=== PATIENT | female | born 1955 | race African-American/Black ===

== ENCOUNTER 2016-06-25 16:00 | Emergency (ER) | payer BC ==
[2016-06-25 16:19] VITALS: BP 108/76; PULSE 79; TEMP 97.8; BMI 28.2
--- NOTE | 2016-06-25 17:24 | PDOC ---
History of Present Illness - General History Source: Patient, Old Records Exam Limitations: No Limitations <All Fuentes - Last Filed: 06/25/16 19:37> <Shireen Hicks - Last Filed: 06/27/16 02:18> - General Chief Complaint: Chest Pain Stated Complaint: CHEST PAIN Time Seen by Provider: 06/25/16 17:19 - History of Present Illness Initial Comments: The patient is a 61 year old female with a significant past medical history of hypertension, hyperlipidemia, and CAD, who presents to the emergency department today for further evaluation of intermittent chest pain since yesterday. Today the patient was at work and states that her chest pain was the worst it has been since initial onset of symptoms. She was sent to the emergency department by her boss to seek treatment. The patient notes that her chest pain began mid- sternally and radiates towards her lower back and epigastric region. She denies chest pain now but reports epigastric pain. She reports associated lightheadedness and diaphoresis. The patient denies fever, cough, and shortness of breath. The patient denies nausea, vomiting, and diarrhea. PCP: Dr. Christine Boyce [phone] PAST MEDICAL HISTORY: HTN, HLD, CAD. PAST SURGICAL HISTORY: Cholecystectomy, appendectomy, 2 cardiac stents, gastric bypass. FAMILY HISTORY: No pertinent history reported SOCIAL HISTORY: Smoker MEDICATIONS: Reviewed ALLERGIES: As per nursing notes (All Fuentes) Past History <All Fuentes - Last Filed: 06/25/16 19:37> - Past Medical History Asthma: Yes Cardiac Disorders: Yes (cardiac stents) HTN: Yes Hypercholesterolemia: Yes Suicide Attempt (Hx): No - Surgical History Abdominal Surgery: Yes (Gastric bypass) Cardiac Surgery: Yes (Cardica Stents) - Family Disease History Family Disease History: Heart Disease: Mother - Immunization History Immunization Up to Date: No - Psycho/Social/Smoking Cessation Hx Anxiety: No Suicidal Ideation: No Smoking Status: Yes Smoking History: Current every day smoker Number of Cigarettes Smoked Daily: 4 Information on smoking cessation initiated: Yes 'Breaking Loose' booklet given: 06/25/16 Hx Alcohol Use: No Drug/Substance Use Hx: No Substance Use Type: None Hx Substance Use Treatment: No <Shireen Hicks - Last Filed: 06/27/16 02:18> - Past Medical History Allergies/Adverse Reactions: Allergies Allergy/AdvReac Type Severity Reaction Status Date / Time No Known Allergies Allergy Verified 06/25/16 16:19 Home Medications: Ambulatory Orders Amlodipine Besylate/Benazepril [Lotrel 5-40 mg Capsule] 1 each PO DAILY Hydrochlorothiazide 25 mg PO DAILY 06/11/15 Nebivolol HCl [Bystolic] 5 mg PO DAILY 06/11/15 Aspirin [Cecilia Chewable] 81 mg PO DAILY 06/25/16 Review of Systems - Review of Systems Able to Perform ROS?: Yes <All Fuentes - Last Filed: 06/25/16 19:37> <Shireen Hicks - Last Filed: 06/27/16 02:18> - Review of Systems Comments:: CONSTITUTIONAL: Present: Diaphoresis Absent: fever, chills, generalized weakness, malaise, loss of appetite HEENT: Absent: rhinorrhea, nasal congestion, throat pain, throat swelling, difficulty swallowing, mouth swelling, ear pain, eye pain, visual Changes CARDIOVASCULAR: Absent: chest pain, syncope, palpitations, irregular heart rate, lightheadedness , peripheral edema RESPIRATORY: Absent: cough, shortness of breath, dyspnea with exertion, orthopnea, wheezing, stridor, hemoptysis GASTROINTESTINAL: Present: Gastrointestinal pain Absent: Nausea, vomiting, diarrhea, constipation, melena, hematochezia GENITOURINARY: Absent: dysuria, frequency, urgency, hesitancy, hematuria, flank pain, genital pain MUSCULOSKELETAL: Present: Back pain Absent: arthralgia, joint swelling SKIN: Absent: rash, itching, pallor HEMATOLOGIC/IMMUNOLOGIC: Absent: easy bleeding, easy bruising, lymphadenopathy, frequent infections ENDOCRINE: Absent: unexplained weight gain, unexplained weight loss, heat intolerance, cold intolerance NEUROLOGIC: Present: Lightheadedness Absent: headache, focal weakness or paresthesias, seizure, mental status changes , bladder or bowel incontinence PSYCHIATRIC: Absent: anxiety, depression, suicidal or homicidal ideation, hallucinations. ( All Fuentes) *Physical Exam <All Fuentes - Last Filed: 06/25/16 19:37> <Shireen Hicks - Last Filed: 06/27/16 02:18> - Vital Signs Last Vital Signs Temp Pulse Resp BP Pulse Ox 97.8 F 79 17 108/76 98 06/25/16 16:17 06/25/16 17:39 06/25/16 16:17 06/25/16 16:17 06/25/16 17:39 - Physical Exam Comments: GENERAL: Well developed, well nourished. Awake and alert. No acute distress. HEENT: Normocephalic, atraumatic. PERRLA, EOMI. No conjunctival pallor. Sclera are non- icteric. Moist mucous membranes. Oropharynx is clear. NECK: Supple. Full ROM. No JVD. Carotid pulses 2+ and symmetric, without bruits. No thyromegaly. No lymphadenopathy. CARDIOVASCULAR: Regular rate and rhythm. No murmurs, rubs, or gallops. Distal pulses are 2+ and symmetric. PULMONARY: No evidence of respiratory distress. Lungs clear to auscultation bilaterally. No wheezing, rales or rhonchi. ABDOMINAL: Soft. Non-tender. Non-distended. No rebound or guarding. No organomegaly. Normoactive bowel sounds. MUSCULOSKELETAL Normal range of motion at all joints. No bony deformities or tenderness. No CVA tenderness. EXTREMITIES: No cyanosis. No clubbing. No edema. No calf tenderness. SKIN: Warm and dry. Normal capillary refill. No rashes. No jaundice. NEUROLOGICAL: Alert, awake, appropriate. Cranial nerves 2-12 intact. No deficits to light touch and temperature in face, upper extremities and lower extremities. No motor deficits in the in face, upper extremities and lower extremities. Normoreflexic in the upper and lower extremities. Normal speech. Toes are down-going bilaterally. PSYCHIATRIC: Cooperative. Good eye contact. Appropriate mood and affect. (All Fuentes) Heart Score/ECG Review <All Fuentes - Last Filed: 06/25/16 19:37> <Shireen Hicks - Last Filed: 06/27/16 02:18> - ECG Impressions Comment:: Normal sinus rhythm. Possible left atrial enlargement. Left axis deviation. Septal infarct age undetermined. Abnormal ECG. (All Fuentes) ED Treatment Course - LABORATORY CBC & Chemistry Diagram: 06/25/16 16:33 06/25/16 16:33 <All Fuentes - Last Filed: 06/25/16 19:37> - LABORATORY CBC & Chemistry Diagram: 06/25/16 16:33 06/25/16 16:33 <Shireen Hicks - Last Filed: 06/27/16 02:18> - ADDITIONAL ORDERS Additional order review: 06/25/16 16:33 RBC 4.57 MCV 85.5 MCHC 32.2 RDW 18.4 H MPV 6.5 L Neutrophils % 52.7 D Lymphocytes % 31.9 D Monocytes % 10.4 H Eosinophils % 4.4 Basophils % 0.6 - RADIOLOGY Radiology Studies Ordered: Category Date Time Status CHEST X-RAY PORTABLE* [RAD] Stat Radiology 06/25/16 17:25 Completed Radiograph Interpretation: 06/25/16 19:20 EXAM#: TYPE/EXAM: RESULT: [id number] RAD/CHEST X-RAY PORTABLE* HISTORY PROVIDED: Chest pain. A single frontal portable projection of the chest at 5:48 PM is submitted. The heart size is within normal limits. The lung nunez are free of pulmonary infiltrates or pleural effusions. There is tortuosity and calcification of the thoracic aorta and degenerative changes of the thoracic spine. IMPRESSION: No acute disease. Reported By: Tyshawn Owen MD 06/25/16 2075 (All Fuentes) - Medications Given in the ED: ED Medications Discontinued Medications Generic Name Dose Route Start Last Admin Trade Name Edwardq PRN Reason Stop Dose Admin Al Hydroxide/Mg Hydroxide 30 ml 06/25/16 20:15 06/25/16 20:29 Mylanta Oral Suspension - PO 06/25/16 20:16 30 ml ONCE ONE Administration Aspirin 162 mg 06/25/16 17:25 06/25/16 17:53 Asa - PO 06/25/16 17:26 162 mg ONCE ONE Administration Ranitidine HCl 150 mg 06/25/16 20:15 06/25/16 20:29 Zantac - PO 06/25/16 20:16 150 mg ONCE ONE Administration Medical Decision Making <All Fuentes - Last Filed: 06/25/16 19:37> <Shireen Hicks - Last Filed: 06/27/16 02:18> - Medical Decision Making 06/27/16 02:16 61-year-old female presented because she had had atypical chest pain in The past 24 hours. 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 (Shireen Hicks) *DC/Admit/Observation/Transfer <All Fuentes - Last Filed: 06/25/16 19:37> <Shireen Hicks - Last Filed: 06/27/16 02:18> Diagnosis at time of Disposition: Atypical chest pain - Discharge Dispostion Disposition: HOME Condition at time of disposition: Stable - Referrals Referrals: Sandy Boyce MD [Primary Care Provider] - - Patient Instructions Printed Discharge Instructions: DI for Atypical Chest Pain Additional Instructions: please followup with your physician this week - Attestations Scribe Attestion: Documentation prepared by All Fuentes, acting as lpn or medical assistant for Shireen Hicks MD. (All Fuentes)
[2016-06-25] MEDS ORDERED: ASPIRIN 81 MG CHEWABLE TABLETS PO ONE (17:25)
[2016-06-25 17:45] LABS: BASOPHIL 0.6 % (0-2.0); EOSINOPHIL 4.4 % (0-4.5); MCH 27.5 pg (25.7-33.7); MCHC 32.2 g/dl (32.0-36.0); MEAN CELL VOLUME 85.5 fl (80-96); MEAN PLT VOLUME 6.5 fl (7.5-11.1); NEUTROPHILS 52.7 % (42.8-82.8); PLATELET COUNT 372 K/MM3 (134-434); RDW 18.4 % (11.6-15.6); WHITE BLOOD COUNT 7.3 K/mm3 (4.0-10.0)
[2016-06-25] MEDS ORDERED: ASPIRIN 81 MG CHEWABLE TABLETS ONE (17:52)
[2016-06-25 17:59] LABS: INR 1.09 (0.82-1.09)
[2016-06-25 18:11] LABS: BILIRUBIN,TOTAL 0.4 mg/dL (0.2-1.0); CALCIUM 9.9 mg/dL (8.5-10.1); COCKROFT - GAULT 52.8785; CREATININE 1.4 mg/dL (0.55-1.02); MAGNESIUM 2.2 mg/dL (1.8-2.4); TOT PROT 7.5 g/dl (6.4-8.2)
[2016-06-25 18:14] LABS: TROPONIN I 0.05 ng/ml (0.00-0.05)
[2016-06-25] MEDS ORDERED: RANITIDINE HCL 150 MG TABLET (FP) PO ONE (20:15)
[2016-06-25] MEDS ORDERED: MAG HYDROX/AL HYDROX/SIMETH 30 ML UNIT-DOSE CUP PO ONE (20:15)
[2016-06-25] MEDS ORDERED: MAG HYDROX/AL HYDROX/SIMETH 30 ML UNIT-DOSE CUP ONE (20:20)
[2016-06-25] MEDS ORDERED: RANITIDINE HCL 150 MG TABLET (FP) ONE (20:20)
[2016-06-25 21:35] LABS: TROPONIN I 0.05 ng/ml (0.00-0.05)
--- NOTE | 2016-06-26 17:13 | EKG ---
Test Reason : Blood Pressure : / mmHG Vent. Rate : 074 BPM Atrial Rate : 074 BPM P-R Int : 144 ms QRS Dur : 088 ms QT Int : 408 ms P-R-T Axes : 062 -32 043 degrees QTc Int : 452 ms NORMAL SINUS RHYTHM POSSIBLE LEFT ATRIAL ENLARGEMENT LEFT AXIS DEVIATION SEPTAL INFARCT (CITED ON OR BEFORE 21-NOV-2013) ABNORMAL ECG WHEN COMPARED WITH ECG OF 11-JUN-2015 14:48, NO SIGNIFICANT CHANGE WAS FOUND Confirmed by BRAEDEN LÓPEZ MD ([id number]) on 06/26/2016 5:12:57 PM Referred By: Confirmed By:BRAEDEN LÓPEZ MD
== END 2016-06-25 21:41 | disposition home or self-care (01) ==
LOC: JER 16:00
DX: R07.89 Other chest pain (principal); I25.10 Atherosclerotic heart disease of native coronary artery without angina pectoris; I10 Essential (primary) hypertension; Z95.1 Presence of aortocoronary bypass graft; Z95.5 Presence of coronary angioplasty implant and graft; E78.5 Hyperlipidemia, unspecified; F17.210 Nicotine dependence, cigarettes, uncomplicated
CPT/HCPCS: 71010-TC; 80053; 82550; 83735; 83880; 84484; 85610; 93005; 93010; 99285-25

== ENCOUNTER 2017-02-24 05:10 | Emergency (ER) | payer BC ==
--- NOTE | 2017-02-24 05:17 | PDOC ---
History of Present Illness - General History Source: Patient Exam Limitations: No Limitations - History of Present Illness Initial Comments: 02/24/17 06:10 The patient is a 61-year-old female with a significant past medical history of asthma, HTN, HLD, and CAD, who presents to the emergency department with worsening shortness of breath for a few days. She also complains of associated chest tightness, headache, and back pain. She reports she is a current every day smoker. Patient believes she is being exposed to asbestos as they are tearing down a house next to her. The patient denies chest pain and dizziness. The patient denies fever, chills, nausea, vomit, diarrhea and constipation. The patient denies dysuria, frequency , urgency and hematuria. Allergies: NKDA Past Surgical History: cholecystectomy, appendectomy, 2 cardiac stents, gastric bypass Social History: smoker, no other toxic habits reported PCP: Dr. Christine Boyce <Janee Steel - Last Filed: 02/24/17 06:09> <Jessenia Espinoza - Last Filed: 02/24/17 06:36> - General Stated Complaint: CHEST TIGHTNESS Time Seen by Provider: 02/24/17 05:17 Past History <Janee Steel - Last Filed: 02/24/17 06:09> - Past Medical History Asthma: Yes Cardiac Disorders: Yes (cardiac stents) HTN: Yes Hypercholesterolemia: Yes - Surgical History Abdominal Surgery: Yes (Gastric bypass) Cardiac Surgery: Yes (Cardica Stents) - Family Disease History Family Disease History: Heart Disease: Mother - Immunization History Immunization Up to Date: No - Suicide/Smoking/Psychosocial Hx Smoking Status: Yes Smoking History: Current every day smoker Number of Cigarettes Smoked Daily: 4 'Breaking Loose' booklet given: 06/25/16 Hx Alcohol Use: No Drug/Substance Use Hx: No Substance Use Type: None Hx Substance Use Treatment: No <Jessenia Espinoza - Last Filed: 02/24/17 06:36> - Past Medical History Allergies/Adverse Reactions: Allergies Allergy/AdvReac Type Severity Reaction Status Date / Time No Known Allergies Allergy Verified 02/24/17 05:34 Home Medications: Ambulatory Orders Amlodipine Besylate/Benazepril [Lotrel 5-40 mg Capsule] 1 each PO DAILY Hydrochlorothiazide 25 mg PO DAILY 06/11/15 Nebivolol HCl [Bystolic] 5 mg PO DAILY 06/11/15 Aspirin [Cecilia Chewable] 81 mg PO DAILY 06/25/16 Review of Systems - Review of Systems Able to Perform ROS?: Yes Comments:: 02/24/17 06:10 GENERAL/CONSTITUTIONAL: No fever or chills. No weakness. HEAD, EYES, EARS, NOSE AND THROAT: No change in vision. No ear pain or discharge. No sore throat. CARDIOVASCULAR: No chest pain. (+) Shortness of breath. RESPIRATORY: No cough or hemoptysis. GASTROINTESTINAL: No nausea, vomiting, diarrhea or constipation. GENITOURINARY: No dysuria, frequency, or change in urination. MUSCULOSKELETAL: (+) Back pain. No joint or muscle swelling or pain. No neck pain. SKIN: No rash NEUROLOGIC: (+) Headache. No vertigo, loss of consciousness, or change in strength/sensation. ENDOCRINE: No increased thirst. No abnormal weight change. HEMATOLOGIC/LYMPHATIC: No anemia, easy bleeding, or history of blood clots. ALLERGIC/IMMUNOLOGIC: No hives or skin allergy. <Steel,Janee - Last Filed: 02/24/17 06:09> *Physical Exam - Vital Signs Last Vital Signs Temp Pulse Resp BP Pulse Ox 98.4 F 73 20 105/80 97 02/24/17 05:34 02/24/17 05:34 02/24/17 05:34 02/24/17 05:34 02/24/17 05:34 - Physical Exam Comments: 02/24/17 06:11 GENERAL: Awake, alert, and fully oriented, in no acute distress. Afebrile. HEAD: No signs of trauma EYES: PERRLA, EOMI, sclera anicteric, conjunctiva clear ENT: Auricles normal inspection, hearing grossly normal, nares patent, oropharynx clear without exudates. Moist mucosa NECK: Normal ROM, supple, no lymphadenopathy, JVD, or masses LUNGS: (+) Inspiratory and expiratory wheezes throughout. No crackles HEART: Regular rate and rhythm, normal S1 and S2, no murmurs, rubs or gallops ABDOMEN: Soft, nontender, normoactive bowel sounds. No guarding, no rebound. No masses EXTREMITIES: Normal range of motion, no edema. No clubbing or cyanosis. No cords, erythema, or tenderness NEUROLOGICAL: Cranial nerves II through XII grossly intact. Normal speech, normal gait SKIN: Warm, Dry, normal turgor, no rashes or lesions noted. <Janee Steel - Last Filed: 02/24/17 06:09> ED Treatment Course - LABORATORY CBC & Chemistry Diagram: 02/24/17 05:50 02/24/17 05:50 <Janee Steel - Last Filed: 02/24/17 06:09> - LABORATORY CBC & Chemistry Diagram: 02/24/17 05:50 02/24/17 05:50 <Jessenia Espinoza - Last Filed: 02/24/17 06:36> Medical Decision Making - Medical Decision Making 02/24/17 06:32 Pt comes with asthma exacerbation. She has no fever and she is a smoker. She states that the cold and the dust and construction from her next door neighbors caused asthma exac. Pt is A+Ox3 and she appears well. SHe sounds wheezy throughout both lung nunez. Pt will be treated with duonebs and solumedrol and mag sulfate. She will be oberved until she feels and sounds better. CBC is normal CXR is normal. Slightly increased markings in the lungs, but overall same as her last CXR. Pt's chem is hemolyzed. We will send chem repeat. She appears well. Pt will be signed out to the day team. 02/24/17 06:36 <Jessenia Espinoza - Last Filed: 02/24/17 06:36> *DC/Admit/Observation/Transfer - Attestations Scribe Attestion: 02/24/17 06:11 Documentation prepared by Janee Steel, acting as medical assembler for Jessenia Espinoza MD/. <Janee Steel - Last Filed: 02/24/17 06:09> <Jessenia Espinoza - Last Filed: 02/24/17 06:36> Diagnosis at time of Disposition: Asthma - Referrals Referrals: Sandy Boyce MD [Primary Care Provider] - - Patient Instructions - Post Discharge Activity
[2017-02-24 05:42] VITALS: TEMP 98.4; BMI 29.0
[2017-02-24] MEDS ORDERED: ALBUTEROL SO4 2.5/IPRATROPIUM 0.5 INH SOL 3 ML VIAL.NEB. NEB ONE ×4 (05:54→07:22)
[2017-02-24] MEDS ORDERED: methylPREDNISolone NA SUCC 125 MG/2 ML VIAL IVPB ONE (05:55)
[2017-02-24] MEDS ORDERED: MAGNESIUM SULF 50% (8.12 MEQ/2 ML-1 GM VIAL) IVPB ONE (05:55)
[2017-02-24] MEDS ORDERED: methylPREDNISolone NA SUCC 125 MG/2 ML VIAL ONE (05:59)
[2017-02-24] MEDS ORDERED: MAGNESIUM SULF 50% (8.12 MEQ/2 ML-1 GM VIAL) ONE (05:59)
[2017-02-24 06:05] LABS: BASO % 0.8 % (0-2.0); EOS % 7.6 % (0-4.5); HEMATOCRIT 36.4 % (32.4-45.2); LYMPH % 18.4 % (8-40); MCH 28.5 pg (25.7-33.7); MCHC 33.1 g/dl (32.0-36.0); MEAN PLT VOLUME 6.6 fl (7.5-11.1); MONO % 10.3 % (3.8-10.2); NEUT % 62.9 % (42.8-82.8); PLATELET COUNT 342 K/MM3 (134-434); RBC 4.23 M/mm3 (3.60-5.2); RDW 17.9 % (11.6-15.6)
--- NOTE | 2017-02-24 07:19 | PDOC ---
*Physical Exam - Vital Signs Last Vital Signs Temp Pulse Resp BP Pulse Ox 98.4 F 73 20 105/80 97 02/24/17 05:34 02/24/17 05:34 02/24/17 05:34 02/24/17 05:34 02/24/17 06:15 - Physical Exam Comments: 02/24/17 07:17 Gen: aaox3, resting comfortably, speaking in full sentences Heart: +s1s2 reg lungs: coarse bs b/l, rhonchi, wheezing abd: soft, nt/nd +bs Ext: no c/c/e ED Treatment Course - LABORATORY CBC & Chemistry Diagram: 02/24/17 05:50 02/24/17 06:36 - ADDITIONAL ORDERS Additional order review: Laboratory Results 02/24/17 02/24/17 05:50 05:50 Sodium Cancelled Potassium Cancelled Chloride Cancelled Carbon Dioxide Cancelled Anion Gap Cancelled BUN Cancelled Creatinine Cancelled Creat Clearance w eGFR Cancelled Random Glucose Cancelled Calcium Cancelled Total Bilirubin Cancelled AST Cancelled ALT Cancelled Alkaline Phosphatase Cancelled Creatine Kinase Cancelled Troponin I Cancelled Total Protein Cancelled Albumin Cancelled 02/24/17 05:50 RBC 4.23 MCV 86.0 MCHC 33.1 RDW 17.9 H MPV 6.6 L Neutrophils % 62.9 Lymphocytes % 18.4 D Monocytes % 10.3 H Eosinophils % 7.6 H Basophils % 0.8 - Medications Given in the ED: ED Medications Discontinued Medications Generic Name Dose Route Start Last Admin Trade Name Anneliese PRN Reason Stop Dose Admin Albuterol/Ipratropium 1 amp 02/24/17 05:54 02/24/17 06:15 Duoneb - NEB 02/24/17 05:55 1 amp ONCE ONE Administration Magnesium Sulfate 2 gm 02/24/17 05:55 02/24/17 06:14 Magnesium Sulfate IVPB 02/24/17 05:56 2 gm ONCE ONE Administration Methylprednisolone Sodium Succinate 125 mg 02/24/17 05:55 02/24/17 06:14 Solu-Medrol - IVPB 02/24/17 05:56 125 mg ONCE ONE Administration Medical Decision Making - Medical Decision Making 02/24/17 07:18 a/p: 61yo female signed out pending labs, ekg, cxr -coarse bs on exam -no f/c -no change in sputum production -pt still smokes -will monitor and reassess -will give another neb -pt states feeling better. 02/24/17 08:24 re-eval: pt feeling much better. still with coarse bs, but speaking in full sentences stable for d/c to home will treat for mucopurulent bronchitis recommended pulm follow up answered all questions. pt is stable for d/c to home *DC/Admit/Observation/Transfer Diagnosis at time of Disposition: Asthma, Upper respiratory infection - Discharge Dispostion Disposition: HOME Condition at time of disposition: Stable Admit: No - Prescriptions Prescriptions: Albuterol Sulfate Inhaler - [Ventolin HFA Inhaler -] 1 - 2 inh PO Q4H PRN #1 inhaler PRN Reason: Wheezing Azithromycin [Zithromax -] 250 mg PO UTDICT #6 tab Prednisone [Deltasone -] 40 mg PO DAILY #8 tablet - Referrals Referrals: Sandy Boyce MD [Primary Care Provider] - Tolu Mas MD, MD [Staff Physician] - - Patient Instructions Printed Discharge Instructions: DI for Acute Bronchitis Additional Instructions: Please take all meds as prescribed. Please make an appointment to see your PMD on saturday of this week. Please return to the ED with any further concerns or questions. - Post Discharge Activity
[2017-02-24 07:24] LABS: ALBUMIN 3.5 g/dl (3.4-5.0); ANION GAP 6 (8-16); BILIRUBIN,TOTAL 0.5 mg/dL (0.2-1.0); BLOOD UREA NITROGEN 23 mg/dL (7-18); CALCIUM 8.8 mg/dL (8.5-10.1); CHLORIDE 104 mmol/L (98-107); CO2 30 mmol/L (21-32); CREATININE 0.9 mg/dL (0.55-1.02); GLUCOSE,RANDOM 104 mg/dL (74-106); POTASSIUM 3.8 mmol/L (3.5-5.1); SGOT/AST 14 U/L (15-37); SGPT/ALT 19 U/L (12-78); SODIUM 140 mmol/L (136-145)
[2017-02-24 07:25] LABS: ALK PHOS 92 U/L (45-117); TOT PROT 6.7 g/dl (6.4-8.2)
[2017-02-24] MEDS ORDERED: SODIUM CHLORIDE 0.9% 1000 ML INFUS.BAG IV ONE (07:44)
[2017-02-24] MEDS ORDERED: AZITHROMYCIN IVPB 500 MG in DEXTROSE 5%-WATER - 250 ML IVPB ONE (07:44)
[2017-02-24] MEDS ORDERED: AZITHROMYCIN IVPB 250 ML IVPB ONE (07:48)
[2017-02-24 08:55] VITALS: BP 139/86; PULSE 79
--- NOTE | 2017-02-25 11:35 | EKG ---
Test Reason : Blood Pressure : / mmHG Vent. Rate : 074 BPM Atrial Rate : 074 BPM P-R Int : 150 ms QRS Dur : 090 ms QT Int : 402 ms P-R-T Axes : 067 -26 058 degrees QTc Int : 446 ms NORMAL SINUS RHYTHM POSSIBLE LEFT ATRIAL ENLARGEMENT SEPTAL INFARCT (CITED ON OR BEFORE 21-NOV-2013) ABNORMAL ECG WHEN COMPARED WITH ECG OF 25-JUN-2016 16:14, NO SIGNIFICANT CHANGE WAS FOUND Confirmed by RICKEY WINCHESTER MD ([id number]) on 02/25/2017 11:35:11 AM Referred By: Confirmed By:RICKEY WINCHESTER MD
== END 2017-02-24 08:55 | disposition home or self-care (01) ==
LOC: JER 05:10
PROC: 3E0F7GC Introduction of Other Therapeutic Substance into Respiratory Tract, Via Natural or Artificial Opening (ICD-10-PCS; principal; 2017-02-24)
PROC: 3E0F7GC Introduction of Other Therapeutic Substance into Respiratory Tract, Via Natural or Artificial Opening (ICD-10-PCS; 2017-02-24)
PROC: 3E0F7GC Introduction of Other Therapeutic Substance into Respiratory Tract, Via Natural or Artificial Opening (ICD-10-PCS; 2017-02-24)
PROC: 3E03329 Introduction of Other Anti-infective into Peripheral Vein, Percutaneous Approach (ICD-10-PCS; 2017-02-24)
PROC: 3E0333Z Introduction of Anti-inflammatory into Peripheral Vein, Percutaneous Approach (ICD-10-PCS; 2017-02-24)
PROC: 3E033GC Introduction of Other Therapeutic Substance into Peripheral Vein, Percutaneous Approach (ICD-10-PCS; 2017-02-24)
DX: J45.901 Unspecified asthma with (acute) exacerbation (principal); R51 Headache; I25.10 Atherosclerotic heart disease of native coronary artery without angina pectoris; I10 Essential (primary) hypertension; F17.210 Nicotine dependence, cigarettes, uncomplicated; Z95.5 Presence of coronary angioplasty implant and graft; E78.00 Pure hypercholesterolemia, unspecified
CPT/HCPCS: 36415; 71046-TC; 80053; 82550; 84484; 85025; 93005; 93010; 99285-25

== ENCOUNTER 2017-07-11 22:28 | Emergency (ER) | payer BC ==
[2017-07-11 22:34] VITALS: BP 150/99; PULSE 88; TEMP 98.2; BMI 28.2
--- NOTE | 2017-07-11 23:05 | PDOC ---
History of Present Illness - History of Present Illness Initial Comments: 07/11/17 22:57 Ms. Saul is a 62 yo female w/ pmh of asthma, HTN, HLD, CAD, and gastric bypass (distant) who presents for evaluation of 2 week history of increasing shortness of breath and dyspnea on exertion. She reports she often gets similar symptoms with seasonal allergies and that she has had significant cough and congestion with these symptoms. She has also had increased dyspnea on exertion and has had recent swelling of her lower extremities bilaterally. 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 The patient denies chest pain, headache and dizziness. Denies fever, chills, nausea, vomit, diarrhea and constipation. Denies dysuria, frequency, urgency and hematuria. Allergies: NKDA <Bashir Brown - Last Filed: 07/11/17 23:21> <Tg Michel - Last Filed: 07/12/17 00:29> - General Chief Complaint: Asthma Stated Complaint: ASTHMA Past History - Past Medical History Asthma: Yes Cardiac Disorders: Yes (cardiac stents) COPD: No HTN: Yes Hypercholesterolemia: Yes - Surgical History Abdominal Surgery: Yes (Gastric bypass) Appendectomy: Yes Cardiac Surgery: Yes (Cardica Stents) - Family Disease History Family Disease History: Heart Disease: Mother - Immunization History Immunization Up to Date: No - Suicide/Smoking/Psychosocial Hx Smoking Status: Yes Smoking History: Never smoked Have you smoked in the past 12 months: No Number of Cigarettes Smoked Daily: 4 If you are a former smoker, when did you quit?: 2 weeks Information on smoking cessation initiated: No 'Breaking Loose' booklet given: 06/25/16 Hx Alcohol Use: No Drug/Substance Use Hx: No Substance Use Type: None Hx Substance Use Treatment: No <Bashir Brown - Last Filed: 07/11/17 23:21> <Tg Michel - Last Filed: 07/12/17 00:29> - Past Medical History Allergies/Adverse Reactions: Allergies Allergy/AdvReac Type Severity Reaction Status Date / Time No Known Allergies Allergy Verified 07/11/17 22:34 Home Medications: Ambulatory Orders Hydrochlorothiazide 25 mg PO DAILY 06/11/15 Nebivolol HCl [Bystolic] 10 mg PO DAILY 06/11/15 Aspirin [Cecilia Chewable] 81 mg PO DAILY 06/25/16 Albuterol Sulfate Inhaler - [Ventolin HFA Inhaler -] 1 - 2 inh PO Q4H PRN #1 inhaler 02/24/17 Amlodipine Besylate/Benazepril [Lotrel 5-40 mg Capsule] 1 each PO DAILY Review of Systems - Review of Systems Comments:: 07/11/17 23:06 GENERAL/CONSTITUTIONAL: No fever or chills. No weakness. HEAD, EYES, EARS, NOSE AND THROAT: No change in vision. No ear pain or discharge. No sore throat. CARDIOVASCULAR: +SOB as described without chest pain RESPIRATORY: No cough, wheezing, or hemoptysis. GASTROINTESTINAL: No nausea, vomiting, diarrhea or constipation. GENITOURINARY: No dysuria, frequency, or change in urination. MUSCULOSKELETAL: +Swelling of legs as described. No joint or muscle swelling or pain. No neck or back pain. SKIN: No rash NEUROLOGIC: No headache, vertigo, loss of consciousness, or change in strength/ sensation. ENDOCRINE: No increased thirst. No abnormal weight change HEMATOLOGIC/LYMPHATIC: No anemia, easy bleeding, or history of blood clots. ALLERGIC/IMMUNOLOGIC: No hives or skin allergy. <Bashir Brown - Last Filed: 07/11/17 23:21> *Physical Exam - Vital Signs Last Vital Signs Temp Pulse Resp BP Pulse Ox 98.2 F 88 16 150/99 94 L 07/11/17 22:32 07/11/17 22:32 07/11/17 22:32 07/11/17 22:32 07/11/17 22:32 - Physical Exam Comments: 07/11/17 23:06 GENERAL: Awake, alert, and fully oriented, in no acute distress HEAD: No signs of trauma, normocephalic, atraumatic EYES: PERRLA, EOMI, sclera anicteric, conjunctiva clear ENT: Auricles normal inspection, hearing grossly normal, nares patent, oropharynx clear without exudates. Moist mucosa NECK: Normal ROM, supple, no lymphadenopathy, JVD, or masses LUNGS: +Lungs diffusely course. HEART: Regular rate and rhythm, normal S1 and S2, no murmurs, rubs or gallops, peripheral pulses normal and equal bilaterally. ABDOMEN: Soft, nontender, normoactive bowel sounds. No guarding, no rebound. No masses EXTREMITIES: +1+ swelling bilaterally in lower extremities. Normal range of motion, no edema. No clubbing or cyanosis. NEUROLOGICAL: Cranial nerves II through XII grossly intact. Normal speech, normal gait, no focal sensorimotor deficits SKIN: Warm, Dry, normal turgor, no rashes or lesions noted. <Bashir Brown - Last Filed: 07/11/17 23:21> - Vital Signs Last Vital Signs Temp Pulse Resp BP Pulse Ox 98.2 F 88 16 150/99 94 L 07/11/17 22:32 07/11/17 22:32 07/11/17 22:32 07/11/17 22:32 07/11/17 22:32 <Tg Michel - Last Filed: 07/12/17 00:29> ED Treatment Course - Medications Given in the ED: ED Medications Discontinued Medications Generic Name Dose Route Start Last Admin Trade Name Freq PRN Reason Stop Dose Admin Albuterol/Ipratropium 1 amp 07/11/17 23:15 07/12/17 00:14 Duoneb - NEB 07/12/17 00:01 1 amp Q15M AURELIO Administration Azithromycin 500 mg 07/11/17 23:17 07/11/17 23:33 Azithromycin PO 07/11/17 23:18 500 mg ONCE ONE Administration Ibuprofen 600 mg 07/11/17 23:17 07/11/17 23:34 Motrin - PO 07/11/17 23:18 600 mg ONCE ONE Administration Prednisone 60 mg 07/11/17 23:17 07/11/17 23:33 Deltasone - PO 07/11/17 23:18 60 mg ONCE ONE Administration <Tg Michel - Last Filed: 07/12/17 00:29> Medical Decision Making - Medical Decision Making 07/11/17 23:09 Mr. Saul is a 62 yo female w/ pmh as described who presents for evaluation of asthma exacerbation. 07/11/17 23:21 Duonebs and azithromycin given for relief/treatment. CXR ordered for evaluation of lungs. <Bashir Brown - Last Filed: 07/11/17 23:21> - Medical Decision Making 07/12/17 00:28 Pt reports improvement s/p meds. CXR reviewed, no acute consolidation. Stable for DC home. <Tg Michel - Last Filed: 07/12/17 00:29> *DC/Admit/Observation/Transfer <Bashir Brown - Last Filed: 07/11/17 23:21> - Discharge Dispostion Decision to Admit order: No <Tg Michel - Last Filed: 07/12/17 00:29> Diagnosis at time of Disposition: Bronchitis Asthma Qualifiers: Asthma severity: unspecified severity Asthma persistence: unspecified Asthma complication type: unspecified Qualified Code(s): J45.909 - Unspecified asthma, uncomplicated - Discharge Dispostion Disposition: HOME Condition at time of disposition: Improved
[2017-07-11] MEDS: ALBUTEROL SO4 2.5/IPRATROPIUM 0.5 INH SOL 3 ML VIAL.NEB. NEB SCH ×3 (23:15→23:45)
--- NOTE | 2017-07-11 23:16 | PDOC ---
Attending Attestation - HPI HPI: 07/11/17 23:25 The patient is a 62 year old female, with a significant PMH of asthma, hypertension, hyperlipidemia, gastric bypass (distant) and coronary artery disease who presents to the emergency department with 2 weeks of progressively worsening shortness of breath. The patient also endorses productive cough with yellow sputum, congestion and bilateral lower extremity swelling. The patient states she has seasonal allergies which exacerbate her asthma symptoms. 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 The patient denies chest pain, palpitations and dizziness. Denies fever, chills, nausea, vomit, diarrhea and constipation. Denies dysuria, frequency, urgency and hematuria. Allergies: NKA PCP: Dr. Sabino Haley Documentation prepared by Jessee Lopez, acting as medical office technology instructor for Tg Michel MD. <Jessee Lopez - Last Filed: 07/11/17 23:25> - Resident Resident Name: Bashir Brown - ED Attending Attestation I have performed the following: I have examined & evaluated the patient, The case was reviewed & discussed with the resident, I agree w/resident's findings & plan, Exceptions are as noted - Physicial Exam PE: GENERAL: Awake, alert, and fully oriented, in no acute distress HEAD: No signs of trauma EYES: PERRLA, EOMI, sclera anicteric, conjunctiva clear ENT: Auricles normal inspection, hearing grossly normal, nares patent, oropharynx clear without exudates. Moist mucosa NECK: Normal ROM, supple, no lymphadenopathy, JVD, or masses LUNGS: Dec air entry B/L. Diffuse rhonchi B/L. HEART: Regular rate and rhythm, normal S1 and S2, no murmurs, rubs or gallops ABDOMEN: Soft, nontender, normoactive bowel sounds. No guarding, no rebound. No masses EXTREMITIES: Normal range of motion, no edema. No clubbing or cyanosis. No cords, erythema, or tenderness NEUROLOGICAL: Cranial nerves II through XII grossly intact. Normal speech, normal gait. Motor and sensation intact. SKIN: Warm, Dry, normal turgor, no rashes or lesions noted. - Medical Decision Making 07/11/17 23:19 Pt with recent URI symptoms, now with SOB, rhonchi on exam. Will give steroids, azithro, nebs, and reassess. <Tg Michel - Last Filed: 07/12/17 00:01>
[2017-07-11] MEDS ORDERED: predniSONE 20 MG TABLET (UD) PO ONE (23:17)
[2017-07-11] MEDS ORDERED: AZITHROMYCIN 500 MG TABLET PO ONE (23:17)
[2017-07-11] MEDS ORDERED: IBUPROFEN 600 MG TABLET (FP) PO ONE ×2 (23:17→23:24)
[2017-07-11] MEDS ORDERED: predniSONE 20 MG TABLET (UD) ONE (23:23)
[2017-07-11] MEDS ORDERED: AZITHROMYCIN 500 MG TABLET ONE (23:23)
[2017-07-11] MEDS ORDERED: ALBUTEROL SO4 2.5/IPRATROPIUM 0.5 INH SOL 3 ML VIAL.NEB. NEB ONE (23:24)
[2017-07-12] MEDS: ALBUTEROL SO4 2.5/IPRATROPIUM 0.5 INH SOL 3 ML VIAL.NEB. NEB SCH (00:14)
== END 2017-07-12 00:45 | disposition home or self-care (01) ==
LOC: JER 22:28
PROC: 3E0F7GC Introduction of Other Therapeutic Substance into Respiratory Tract, Via Natural or Artificial Opening (ICD-10-PCS; principal; 2017-07-11)
DX: J45.901 Unspecified asthma with (acute) exacerbation (principal)
CPT/HCPCS: 71045-TC-FY; 99282-25; J7620

== ENCOUNTER 2017-07-27 10:17 | Observation (INO) | payer BC ==
[2017-07-27] MEDS ORDERED: ACETAMINOPHEN 325 MG TABLET (FP) PO ONE (10:47)
[2017-07-27] MEDS ORDERED: ALBUTEROL SO4 2.5/IPRATROPIUM 0.5 INH SOL 3 ML VIAL.NEB. NEB ONE ×2 (10:47→10:59)
[2017-07-27] MEDS ORDERED: ASPIRIN 81 MG CHEWABLE TABLETS PO ONE (10:51)
[2017-07-27] MEDS ORDERED: ASPIRIN 81 MG CHEWABLE TABLETS ONE (10:59)
[2017-07-27] MEDS ORDERED: ACETAMINOPHEN 325 MG TABLET (FP) ONE (10:59)
--- NOTE | 2017-07-27 11:09 | PDOC ---
*Physical Exam - Vital Signs Last Vital Signs Temp Pulse Resp BP Pulse Ox 97.8 F 78 18 144/80 99 07/27/17 10:18 07/27/17 10:18 07/27/17 10:18 07/27/17 10:18 07/27/17 10:18 ED Treatment Course - LABORATORY CBC & Chemistry Diagram: 07/28/17 06:00 07/29/17 05:24 Medical Decision Making - Medical Decision Making 07/27/17 11:09 Pt seen by the Advanced Practice Provider under my direct supervision Ancillary studies reviewed I agree with plan as outlined by the Advanced Practice Provider MERRITT De Dios *DC/Admit/Observation/Transfer Diagnosis at time of Disposition: Atypical chest pain - Discharge Dispostion Disposition: HOME Condition at time of disposition: Improved - Prescriptions - Referrals - Patient Instructions - Post Discharge Activity
[2017-07-27 11:49] LABS: URINE APPEARANCE SLCLOUDY; URINE BILIRUBIN NEGATIVE (<2.0 mg/dL); URINE COLOR YELLOW; URINE GLUCOSE (UA) NEGATIVE (NEGATIVE); URINE KETONE NEGATIVE (NEGATIVE); URINE LEUK ESTERASE NEGATIVE (NEGATIVE); URINE NITRITE NEGATIVE (NEGATIVE); URINE PROTEIN NEGATIVE (NEGATIVE); URINE UROBILINOGEN 4.0 E.U/dl mg/dL (0.2-1.0)
[2017-07-27 11:51] LABS: BASO % 0.3 % (0-2.0); EOS % 1.1 % (0-4.5); HEMOGLOBIN 11.7 GM/dL (10.7-15.3); LYMPH % 7.2 % (8-40); MCHC 32.6 g/dl (32.0-36.0); MEAN CELL VOLUME 85.8 fl (80-96); MEAN PLT VOLUME 7.1 fl (7.5-11.1); MONO % 9.2 % (3.8-10.2); NEUT % 82.2 % (42.8-82.8); PLATELET COUNT 375 K/MM3 (134-434); RDW 17.5 % (11.6-15.6); WHITE BLOOD COUNT 11.4 K/mm3 (4.0-10.0)
[2017-07-27 12:17] LABS: ANION GAP 5 (8-16); BLOOD UREA NITROGEN 17 mg/dL (7-18); CHLORIDE 102 mmol/L (98-107); CO2 32 mmol/L (21-32); CREATININE 0.9 mg/dL (0.55-1.02); GLUCOSE,RANDOM 99 mg/dL (74-106); POTASSIUM 3.9 mmol/L (3.5-5.1); SGOT/AST 135 U/L (15-37); SGPT/ALT 79 U/L (12-78); SODIUM 139 mmol/L (136-145)
[2017-07-27 12:18] LABS: ALK PHOS 197 U/L (45-117); BILIRUBIN,TOTAL 0.5 mg/dL (0.2-1.0); INR 1.08 (0.82-1.09); PROTHROMBIN TIME (PATIENT) 12.2 SEC (9.7-13.0); TOT PROT 6.5 g/dl (6.4-8.2)
--- NOTE | 2017-07-27 12:18 | PDOC ---
History of Present Illness - General Chief Complaint: Respiratory Stated Complaint: CHEST DISCOMFORT Time Seen by Provider: 07/27/17 10:28 History Source: Patient Exam Limitations: No Limitations - History of Present Illness Initial Comments: 07/27/17 13:39 Pt. is a 62 y/o F with PMH of asthma, CAD with stents, HTN, HLD, who presents to the ED with L sided chest pain. Pt. states that she felt chest tightness when she woke up this morning. Her pain got worse after walking around the house. States she briefly felt nauseous She states that the pain gets worse when she takes a deep breath. She points the the pain is substernal and under her left breast. Pt. also states she has been evaluated in the ED for SOB and cough over the past month with little relief of her symptoms. Denies fevers, chills, sore throat, edema, palpitations, vomiting, edema. Past History - Travel Traveled outside of the country in the last 30 days: No Close contact w/someone who was outside of country & ill: No - Past Medical History Allergies/Adverse Reactions: Allergies Allergy/AdvReac Type Severity Reaction Status Date / Time No Known Allergies Allergy Verified 07/27/17 10:21 Home Medications: Ambulatory Orders Hydrochlorothiazide 25 mg PO DAILY 06/11/15 Nebivolol HCl [Bystolic] 10 mg PO DAILY 06/11/15 Aspirin [Cecilia Chewable] 81 mg PO DAILY 06/25/16 Amlodipine Besylate/Benazepril [Lotrel 5-40 mg Capsule] 1 each PO DAILY Albuterol Sulfate Inhaler - [Ventolin HFA Inhaler -] 1 - 2 inh PO QID PRN #1 inhaler 07/12/17 Asthma: Yes Cardiac Disorders: Yes (cardiac stents) COPD: No HTN: Yes Hypercholesterolemia: Yes - Surgical History Abdominal Surgery: Yes (Gastric bypass) Appendectomy: Yes Cardiac Surgery: Yes (Cardica Stents) - Family Disease History Family Disease History: Heart Disease: Mother - Immunization History Immunization Up to Date: No - Suicide/Smoking/Psychosocial Hx Smoking Status: Yes Smoking History: Never smoked Have you smoked in the past 12 months: No Number of Cigarettes Smoked Daily: 4 If you are a former smoker, when did you quit?: 2 weeks Information on smoking cessation initiated: No 'Breaking Loose' booklet given: 06/25/16 Hx Alcohol Use: No Drug/Substance Use Hx: No Substance Use Type: None Hx Substance Use Treatment: No Review of Systems - Review of Systems Able to Perform ROS?: Yes Comments:: 07/27/17 14:49 CONSTITUTIONAL: Absent: fever, chills, diaphoresis, generalized weakness, malaise, loss of appetite HEENT: Absent: rhinorrhea, nasal congestion, throat pain, throat swelling, difficulty swallowing, mouth swelling, ear pain, eye pain, visual Changes CARDIOVASCULAR: Present: chest pain Absent: loss of consciousness, palpitations, irregular heart rate, peripheral edema RESPIRATORY: Present: cough, shortness of breath Absent: cough, shortness of breath, dyspnea with exertion, orthopnea, wheezing, stridor, hemoptysis GASTROINTESTINAL: Present: nausea Absent: abdominal pain, abdominal distension, vomiting, diarrhea , constipation, melena, hematochezia GENITOURINARY: Absent: dysuria, frequency, urgency, hesitancy, hematuria, flank pain, genital pain MUSCULOSKELETAL: Absent: myalgia, arthralgia, joint swelling SKIN: Absent: rash, itching, pallor HEMATOLOGIC/IMMUNOLOGIC: Absent: easy bleeding, easy bruising, lymphadenopathy, frequent infections ENDOCRINE: Absent: unexplained weight gain, unexplained weight loss, heat intolerance, cold intolerance NEUROLOGIC: Absent: headache, focal weakness or paresthesias, dizziness, unsteady gait, seizure, mental status changes, bladder or bowel incontinence PSYCHIATRIC: Absent: anxiety, depression, suicidal or homicidal ideation, hallucinations. Is the patient limited And[place] proficient: No *Physical Exam - Vital Signs Last Vital Signs Temp Pulse Resp BP Pulse Ox 97.8 F 78 18 144/80 99 07/27/17 10:18 07/27/17 10:18 07/27/17 10:18 07/27/17 10:18 07/27/17 10:18 - Physical Exam Comments: 07/27/17 :31 GENERAL: Well developed, well nourished. Awake and alert. No acute distress. HEENT: Normocephalic, atraumatic. PERRLA, EOMI. No conjunctival pallor. Sclera are non- icteric. Moist mucous membranes. Oropharynx is clear. NECK: Supple. Full ROM. No JVD. Carotid pulses 2+ and symmetric, without bruits. No thyromegaly. No lymphadenopathy. CARDIOVASCULAR: Regular rate and rhythm. No murmurs, rubs, or gallops. Distal pulses are 2+ and symmetric. PULMONARY: No evidence of respiratory distress. Lungs clear to auscultation bilaterally. No wheezing, rales or rhonchi. ABDOMINAL: Soft. Non-tender. Non-distended. No rebound or guarding. No organomegaly. Normoactive bowel sounds. MUSCULOSKELETAL Normal range of motion at all joints. No bony deformities or tenderness. No CVA tenderness. EXTREMITIES: No cyanosis. No clubbing. No edema. No calf tenderness. SKIN: Warm and dry. Normal capillary refill. No rashes. No jaundice. NEUROLOGICAL: Alert, awake, appropriate. Cranial nerves 2-12 intact. No deficits to light touch and temperature in face, upper extremities and lower extremities. No motor deficits in the in face, upper extremities and lower extremities. Normoreflexic in the upper and lower extremities. Normal speech. Toes are down- going bilaterally. Gait is normal without ataxia. PSYCHIATRIC: Cooperative. Good eye contact. Appropriate mood and affect Heart Score/ECG Review - History History: Moderately suspicious - Electrocardiogram EKG: Normal - Age Age: 45-65 - Risk Factors Risk Factors Heart Score: Yes Hx Hypercholesterolemia, Yes Hx Hypertension, Yes Smoking History, Yes Positive family hx of cardiac disease Based on the list above the patient has:: >/=3 risk factors or Hx atherosclerotic disease - Troponin Troponin: </= normal limit - Score Heart Score - Total: 4 ED Treatment Course - LABORATORY CBC & Chemistry Diagram: 07/27/17 11:24 07/27/17 11:24 - ADDITIONAL ORDERS Additional order review: Laboratory Results 07/27/17 11:24 Urine Color Yellow Urine Appearance Slcloudy Urine pH 8.0 Ur Specific [place] 1.016 Urine Protein Negative Urine Glucose (UA) Negative Urine Ketones Negative Urine Blood Negative Urine Nitrite Negative Urine Bilirubin Negative Urine Urobilinogen 4.0 e.u/dl H Ur Leukocyte Esterase Negative 07/27/17 11:24 RBC 4.20 MCV 85.8 MCHC 32.6 RDW 17.5 H MPV 7.1 L Neutrophils % 82.2 D Lymphocytes % 7.2 L D Monocytes % 9.2 Eosinophils % 1.1 D Basophils % 0.3 - RADIOLOGY Radiology Studies Ordered: Category Date Time Status CHEST PA & LAT [RAD] Stat Radiology 07/27/17 10:47 Completed - Medications Given in the ED: ED Medications Discontinued Medications Generic Name Dose Route Start Last Admin Trade Name Anneliese PRN Reason Stop Dose Admin Acetaminophen 650 mg 07/27/17 10:47 07/27/17 11:00 Tylenol - PO 07/27/17 10:48 650 mg ONCE ONE Administration Albuterol/Ipratropium 1 amp 07/27/17 10:47 07/27/17 11:00 Duoneb - NEB 07/27/17 10:48 1 amp ONCE ONE Administration Aspirin 324 mg 07/27/17 10:51 07/27/17 11:00 Asa - PO 07/27/17 10:52 324 mg ONCE ONE Administration Medical Decision Making - Medical Decision Making 07/27/17 13:56 Pt. is a 62 y/o F with PMH of asthma, CAD with stents, HTN, HLD, who presents to the ED with L sided chest pain and shortness of breath since this morning. Exam is benign and pt states her chest pain is worse when she takes a deep breath. However given hx of stents, onset of symptoms and location of pain, and chronic cough/SOB will obtain labwork to r/o ACS, PE, fever, metabolic derangement. Will also obtain CXR and EKG. Duonebs given for shortness of breath. Tylenol and aspirin given. Pt. states she missed her last stress test appointment and the last one was over a year ago PCP:Loulou Gruber Enforcement Safety Officer: Dr. Andrade 07/27/17 14:32 D-Dimer elevated at 758. First troponin is negative. Given elevated dimer will sent pt for chest CTA to r/o PE. CXR is negative for acute patholgy. Pt sent to CT. EKG: Rate of 77bpm, NSR. Normal intervals/axis. No acute ST-T wave changes. 07/27/17 16:[address] scan. She states that she feels better after tylenol and aspirin and that her chest pain has resolved. 07/27/16 19:01 CT still not reported, sent to [facility]. Given that pt had chest pain and shortness of breath will place patient for tele obs to r/o cardiac cause. Case discussed with Dr. Hollingsworth of [facility]. Will place pt in obs. Pending CT read. *DC/Admit/Observation/Transfer Diagnosis at time of Disposition: Atypical chest pain - Discharge Dispostion Condition at time of disposition: Guarded Decision to Admit order: Yes - Referrals - Patient Instructions - Post Discharge Activity
[2017-07-27 14:51] LABS: LIPASE 183 U/L (73-393)
--- NOTE | 2017-07-27 17:44 | EKG ---
Test Reason : Blood Pressure : / mmHG Vent. Rate : 065 BPM Atrial Rate : 065 BPM P-R Int : 146 ms QRS Dur : 088 ms QT Int : 390 ms P-R-T Axes : 018 086 037 degrees QTc Int : 405 ms NORMAL SINUS RHYTHM NORMAL ECG WHEN COMPARED WITH ECG OF 24-FEB-2017 05:17, QRS AXIS SHIFTED RIGHT ST ELEVATION NOW PRESENT IN INFERIOR LEADS NONSPECIFIC T WAVE ABNORMALITY, WORSE IN LATERAL LEADS Confirmed by FERNANDO LEIJA, JUSTEN ([id number]) on 07/27/2017 5:44:09 PM Referred By: Confirmed By:JUSTEN KING MD
[2017-07-27] MEDS ORDERED: methylPREDNISolone NA SUCC 125 MG/2 ML VIAL IVPUSH ONE (21:43)
[2017-07-27] MEDS ORDERED: MAGNESIUM SULF 50% (8.12 MEQ/2 ML-1 GM VIAL) IVPB ONE (21:46)
[2017-07-27] MEDS ORDERED: ALBUTEROL SO4 0.083% IH SOL 2.5 MG/3 ML VIAL.NEB. NEB PRN (21:47)
[2017-07-27] MEDS ORDERED: MONTELUKAST NA 5 MG TAB.CHEW PO SCH (22:00)
[2017-07-27] MEDS: ALBUTEROL SO4 2.5/IPRATROPIUM 0.5 INH SOL 3 ML VIAL.NEB. NEB SCH ×2 (23:05→23:06)
[2017-07-27] MEDS: PANTOPRAZOLE 40 MG TABLET (FP) PO SCH (23:08)
[2017-07-27] MEDS ORDERED: methylPREDNISolone NA SUCC 125 MG/2 ML VIAL ONE (23:14)
[2017-07-27] MEDS ORDERED: PANTOPRAZOLE 40 MG TABLET (FP) ONE (23:14)
[2017-07-27] MEDS ORDERED: MAGNESIUM SULF 50% (8.12 MEQ/2 ML-1 GM VIAL) ONE (23:24)
--- NOTE | 2017-07-27 23:50 | HP ---
CHIEF COMPLAINT: wheezing, chest congestion PCP: abner lisa HISTORY OF PRESENT ILLNESS: 62 y/o f with PMH of asthma came in with a complaint of wheezing and tightness in chest. Patient reports that she had wheezing, cough tightness in chest going on since one month and is taking albuterol inhaler many times a day. Also reports that recently she went to her pcp and was started on steroid, antibiotic and nebulizer which she finished on and again have same features. Denies fever, chest pain, sob, palpitations, orthopnea, dizziness. Can walk upto two blocks without getting short of breath. No h/o pets, no carpet in home, didn't have asthma attack from many years, no symptoms wit change in weather. she does report that she has heartburn and use to take nexium which she had stopped taking. ER course was notable for: (1)cbc, cm cxr, cta chest, ddimer (2)albuterol inhaler Recent Travel: no PAST MEDICAL HISTORY: asthma, htn, hld, cad PAST SURGICAL HISTORY: gastric bypass 20 years ago Social History:none Family History: no family history Allergies No Known Allergies Allergy (Verified 07/27/17 10:21) HOME MEDICATIONS: Home Medications Medication Instructions Recorded Hydrochlorothiazide 25 mg PO DAILY 06/11/15 Nebivolol HCl [Bystolic] 10 mg PO DAILY 06/11/15 Aspirin [Cecilia Chewable] 81 mg PO DAILY 06/25/16 Amlodipine Besylate/Benazepril 1 each PO DAILY 07/11/17 [Lotrel 5-40 mg Capsule] Albuterol Sulfate Inhaler - 1 - 2 inh PO QID PRN #1 inhaler 07/12/17 [Ventolin HFA Inhaler -] REVIEW OF SYSTEMS CONSTITUTIONAL: Absent: fever, chills, diaphoresis, generalized weakness, malaise, loss of appetite, weight change HEENT: Absent: rhinorrhea, nasal congestion, throat pain, throat swelling, difficulty swallowing, mouth swelling, ear pain, eye pain, visual changes CARDIOVASCULAR: Absent: chest pain, syncope, palpitations, irregular heart rate, lightheadedness , peripheral edema RESPIRATORY: Absent: cough, shortness of breath, dyspnea with exertion, orthopnea, wheezing, stridor, hemoptysis GASTROINTESTINAL: Absent: abdominal pain, abdominal distension, nausea, vomiting, diarrhea, constipation, GENITOURINARY: Absent: dysuria, frequency, urgency, hesitancy, hematuria, flank pain, genital pain MUSCULOSKELETAL: Absent: myalgia, arthralgia, joint swelling, back pain, neck pain SKIN: Absent: rash, itching, pallor HEMATOLOGIC/IMMUNOLOGIC: Absent: easy bleeding, easy bruising, ENDOCRINE: Absent: unexplained weight gain, unexplained weight loss, NEUROLOGIC: Absent: headache, focal weakness or paresthesias, PSYCHIATRIC: Absent: anxiety, depression, PHYSICAL EXAMINATION Vital Signs - 24 hr 07/27/17 07/27/17 07/27/17 10:18 14:30 18:20 Temperature 97.8 F 98.1 F 98.3 F Pulse Rate 78 Pulse Rate [ 79 63 Left Radial] Respiratory 18 20 20 Rate Blood Pressure 144/80 Blood Pressure 124/68 103/65 [Right Arm] O2 Sat by Pulse 99 96 98 Oximetry (%) 07/27/17 18:21 Temperature Pulse Rate Pulse Rate [ Left Radial] Respiratory 20 Rate Blood Pressure Blood Pressure [Right Arm] O2 Sat by Pulse 98 Oximetry (%) GENERAL: Awake, alert, and fully oriented, in no acute distress. talking in full sentence HEAD: Normal with no signs of trauma. EYES: Pupils equal, round and reactive to light, extraocular movements intact, EARS, NOSE, THROAT:oropharynx clear without exudates. Moist mucous membranes. NECK: Normal range of motion, supple without lymphadenopathy, JVD, or masses. LUNGS: Breath sounds equal, wheezes present b/l , and no crackles. No accessory muscle use. HEART: Regular rate and rhythm, normal S1 and S2 without murmur, ABDOMEN: Soft, nontender, not distended, normoactive bowel sounds, no guarding, no rebound, no masses. . MUSCULOSKELETAL: Normal range of motion at all joints. No bony deformities or tenderness. No CVA tenderness. UPPER EXTREMITIES: 2+ pulses, warm, well-perfused. No cyanosis. No clubbing. No peripheral edema. LOWER EXTREMITIES: 2+ pulses, warm, well-perfused. No calf tenderness. No peripheral edema. NEUROLOGICAL: Cranial nerves II-XII intact. Normal speech. PSYCHIATRIC: Cooperative. Good eye contact. SKIN: Warm, dry, Laboratory Results - last 24 hr 07/27/17 07/27/17 07/27/17 11:24 11:24 11:24 WBC 11.4 H D RBC 4.20 Hgb 11.7 Hct 36.0 MCV 85.8 MCH 28.0 MCHC 32.6 RDW 17.5 H Plt Count 375 MPV 7.1 L Absolute Neuts (auto) 9.4 Neutrophils % 82.2 D Lymphocytes % 7.2 L D Monocytes % 9.2 Eosinophils % 1.1 D Basophils % 0.3 Nucleated RBC % 0 PT with INR 12.20 INR 1.08 D-Dimer Sodium Potassium Chloride Carbon Dioxide Anion Gap BUN Creatinine Creat Clearance w eGFR Random Glucose Calcium Magnesium Total Bilirubin AST ALT Alkaline Phosphatase Creatine Kinase Troponin I Total Protein Albumin Lipase Urine Color Yellow Urine Appearance Slcloudy Urine pH 8.0 Ur Specific [place] 1.016 Urine Protein Negative Urine Glucose (UA) Negative Urine Ketones Negative Urine Blood Negative Urine Nitrite Negative Urine Bilirubin Negative Urine Urobilinogen 4.0 e.u/dl H Ur Leukocyte Esterase Negative 07/27/17 07/27/17 11:24 11:24 WBC RBC Hgb Hct MCV MCH MCHC RDW Plt Count MPV Absolute Neuts (auto) Neutrophils % Lymphocytes % Monocytes % Eosinophils % Basophils % Nucleated RBC % PT with INR INR D-Dimer 741 H Sodium 139 Potassium 3.9 Chloride 102 Carbon Dioxide 32 Anion Gap 5 L BUN 17 Creatinine 0.9 Creat Clearance w eGFR > 60 Random Glucose 99 Calcium 9.0 Magnesium 2.0 Total Bilirubin 0.5 AST 135 H ALT 79 H Alkaline Phosphatase 197 H Creatine Kinase 39 Troponin I < 0.02 Total Protein 6.5 Albumin 3.0 L Lipase 183 Urine Color Urine Appearance Urine pH Ur Specific [place] Urine Protein Urine Glucose (UA) Urine Ketones Urine Blood Urine Nitrite Urine Bilirubin Urine Urobilinogen Ur Leukocyte Esterase ASSESSMENT/PLAN: 62 y/o f with PMH of asthma came in with a complaint of wheezing and tightness in chest Asthma exabration; Trigerring factor could be gerd as painet has h/o gastric bypass which also increases chances of gerd recently finished a course of antbiotic and steroid. will give er IV solumedrol 125 one time and from tomorrow she can get prednisone 40 daily. duoneb nebulizer q6h albuterol nub prn magnesium one time no need of antibiotics. monitor vitals monior intake/ output. CTA no pe protonix 40 bid head end elevated. montelucast daily calcified granulamatous lesion on CT scan incidental finding will get ellen level, candy madison patient states she got ppd done 2 months ago and it was normal. HTN continue home meds hld home meds H/o CAD ekg reviewed tropi negative, will get second trop as painet was complaining of tightness in chest will get echo, cardiac monitoring cardiology consult fluid: orally allowed electrolyte: repeat in am nutrition: low cholestrol diet dvt pro; heparin dispo: telel obs. Visit type - Emergency Visit Emergency Visit: Yes ED Registration Date: 07/27/17 Care time: The patient presented to the Emergency Department on the above date and was hospitalized for further evaluation of their emergent condition. - New Patient This patient is new to me today: Yes Date on this admission: 07/28/17 - Critical Care Critical Care patient: No
[2017-07-28 00:47] VITALS: BMI 30.6
--- NOTE | 2017-07-28 01:54 | PN ---
Teaching Attending Note Name of Resident: Marc Foote ATTENDING PHYSICIAN STATEMENT I saw and evaluated the patient. Chart, data, imaging reviewed. I reviewed the resident's note and discussed the case with the resident. I agree with the resident's findings and plan as documented. SUBJECTIVE: 62 y/o woman with PMH of asthma, CAD, HTN, dyslipidemia c/o chest thightness and shortness of breath for one day. Denied any overt chest pain at the moment. SHortness of breath was not related to exertion. She denied any fevers, chills or productive cough. No reported sick contacts. CHest CT showed right sided calcified granuloma. Patient denied any history of TB. She said that she had a recent negative PPD. OBJECTIVE: Last Vital Signs Temp Pulse Resp BP Pulse Ox 98.5 F 64 20 133/87 97 07/28/17 00:25 07/28/17 01:04 07/28/17 01:04 07/28/17 00:25 07/28/17 00:30 General- nad, aaox3 HEENT -at, nc neck - supple cv -s1+s2+rrr chest- mild diffuse expiratory wheezing appreciated b/l on post and ant chest auscultation abdomen- soft, nt, BS+ skin- no rashes appreciated Msk - no joint swelling Abnormal Lab Results 07/27/17 07/27/17 07/27/17 11:24 11:24 11:24 WBC 11.4 H D RDW 17.5 H MPV 7.1 L Lymphocytes % 7.2 L D D-Dimer Anion Gap 5 L AST 135 H ALT 79 H Alkaline Phosphatase 197 H Albumin 3.0 L Urine Urobilinogen 4.0 e.u/dl H 07/27/17 11:24 WBC RDW MPV Lymphocytes % D-Dimer 741 H Anion Gap AST ALT Alkaline Phosphatase Albumin Urine Urobilinogen CTA of chest reviewed- right sided calcified graulomatous LN in hilum, lung parenchyma clear. No PE seen. ASSESSMENT AND PLAN: #SHortness of breath is secondary to acute asthma exacerbation. Very Unlikely to be ACS. Calcified granuloma found. Will order Quantiferon gold. PE was r/o on CTA. -tele/obs -prednisone 40mg po daily -duonebs q6hrs standing -azithromycin 500mg po daily for antiiflammatory effect -start ICS for better asthma control -resp watch -trend troponin -quantiferon gold given granuloma -EKG #diet- regular diet DVT ppx- heparin sc see resident note for details
[2017-07-28] MEDS ORDERED: HEPARIN NA (PORCINE) 5,000 UNITS/ML 1ML VIAL SQ SCH (06:00)
[2017-07-28 07:39] LABS: BASO % 0.1 % (0-2.0); EOS % 0.1 % (0-4.5); HEMATOCRIT 33.9 % (32.4-45.2); HEMOGLOBIN 11.4 GM/dL (10.7-15.3); LYMPH % 5.6 % (8-40); MCH 28.7 pg (25.7-33.7); MCHC 33.5 g/dl (32.0-36.0); MEAN CELL VOLUME 85.5 fl (80-96); MEAN PLT VOLUME 6.9 fl (7.5-11.1); MONO % 0.9 % (3.8-10.2); NEUT % 93.3 % (42.8-82.8); PLATELET COUNT 354 K/MM3 (134-434); RBC 3.96 M/mm3 (3.60-5.2); RDW 17.5 % (11.6-15.6); WHITE BLOOD COUNT 7.8 K/mm3 (4.0-10.0)
--- NOTE | 2017-07-28 07:52 | CON.CARD ---
Consult Consult Specialty:: Cardiology for dr. Clark - History of Present Illness History of Present Illness: Pt. is a 62 y/o F with PMH of asthma, CAD with stents, HTN, HLD, who presents to the ED with L sided chest pain. Pt. states that she felt chest tightness when she woke up this morning. Her pain got worse after walking around the house. States she briefly felt nauseous She states that the pain gets worse when she takes a deep breath. She points the the pain is substernal and under her left breast. Pt. also states she has been evaluated in the ED for SOB and cough over the past month with little relief of her symptoms. Denies fevers, chills, sore throat, edema, palpitations, vomiting, edema. - Past Medical History Cardio/Vascular: Yes: CAD, HTN, Hyperlipdemia Pulmonary: Yes: Asthma Gastrointestinal: Yes: GERD, Hiatal Hernia - Past Surgical History Past Surgical History: Yes: Bariatric Surgery, Cholecystectomy - Alcohol/Substance Use Hx Alcohol Use: No - Smoking History Smoking history: Never smoked Have you smoked in the past 12 months: No Aproximately how many cigarettes per day: 4 If you are a former smoker, when did you quit?: 2 weeks Home Medications - Allergies Allergies/Adverse Reactions: Allergies Allergy/AdvReac Type Severity Reaction Status Date / Time No Known Allergies Allergy Verified 07/27/17 10:21 - Home Medications Home Medications: Ambulatory Orders Hydrochlorothiazide 25 mg PO DAILY 06/11/15 Nebivolol HCl [Bystolic] 10 mg PO DAILY 06/11/15 Aspirin [Cecilia Chewable] 81 mg PO DAILY 06/25/16 Amlodipine Besylate/Benazepril [Lotrel 5-40 mg Capsule] 1 each PO DAILY Albuterol Sulfate Inhaler - [Ventolin HFA Inhaler -] 1 - 2 inh PO QID PRN #1 inhaler 07/12/17 Review of Systems - Review of Systems Constitutional: reports: No Symptoms Eyes: reports: No Symptoms HENT: reports: No Symptoms Neck: reports: No Symptoms Cardiovascular: reports: No Symptoms Gastrointestinal: reports: No Symptoms Genitourinary: reports: No Symptoms Breasts: reports: No Symptoms Reported Musculoskeletal: reports: No Symptoms Integumentary: reports: No Symptoms Neurological: reports: No Symptoms Endocrine: reports: No Symptoms Hematology/Lymphatic: reports: No Symptoms Psychiatric: reports: No Symptoms Vital Signs: Vital Signs Temperature 98.2 F 07/28/17 02:00 Pulse Rate 58 L 07/28/17 02:00 Respiratory Rate 20 07/28/17 02:00 Blood Pressure 130/85 07/28/17 02:00 O2 Sat by Pulse Oximetry (%) 97 07/28/17 00:30 Constitutional: Yes: Well Nourished, No Distress, Calm Eyes: Yes: WNL, Conjunctiva Clear, EOM Intact HENT: Yes: WNL, Atraumatic, Normocephalic Neck: Yes: WNL, Supple, Trachea Midline Respiratory: Yes: WNL, Regular, CTA Bilaterally Gastrointestinal: Yes: WNL, Normal Bowel Sounds Renal/: Yes: WNL Cardiovascular: Yes: WNL, Regular Rate and Rhythm Musculoskeletal: Yes: WNL Extremities: Yes: WNL Integumentary: Yes: WNL Neurological: Yes: WNL, Alert, Oriented ...Motor Strength: WNL Psychiatric: Yes: WNL, Alert, Oriented - Other Data Labs, Other Data: CBC, BMP 07/28/17 06:00 INR, PTT INR 1.08 (0.82-1.09) 07/27/17 11:24 Troponin, BNP 07/27/17 07/27/17 11:24 23:40 Troponin I < 0.02 Cancelled Troponin, BNP 07/27/17 07/27/17 11:24 23:40 Troponin I < 0.02 Cancelled Imaging - Results Chest X-ray: Image Reviewed (no i/e) EKG: Image Reviewed (sr wnl) Problem List - Problems (1) Atypical chest pain Code(s): R07.89 - OTHER CHEST PAIN (2) Arthritis Code(s): M19.90 - UNSPECIFIED OSTEOARTHRITIS, UNSPECIFIED SITE (3) Asthma Code(s): J45.909 - UNSPECIFIED ASTHMA, UNCOMPLICATED Qualifiers: Asthma severity: unspecified severity Asthma persistence: unspecified Asthma complication type: unspecified Qualified Code(s): J45.909 - Unspecified asthma, uncomplicated (4) Back pain Code(s): M54.9 - DORSALGIA, UNSPECIFIED (5) Bronchitis Code(s): J40 - BRONCHITIS, NOT SPECIFIED ACUTE OR CHRONIC (6) Chondromalacia of knee Code(s): M94.269 - CHONDROMALACIA, UNSPECIFIED KNEE (7) Gastritis Code(s): K29.70 - GASTRITIS, UNSPECIFIED, WITHOUT BLEEDING (8) Knee effusion, right Code(s): M25.461 - EFFUSION, RIGHT KNEE (9) Knee pain, right Code(s): M25.561 - PAIN IN RIGHT KNEE (10) Pancreatitis Code(s): K85.9 - ACUTE PANCREATITIS, UNSPECIFIED * DO NOT USE * (11) Upper respiratory infection Code(s): J06.9 - ACUTE UPPER RESPIRATORY INFECTION, UNSPECIFIED Assessment/Plan Pt. is a 62 y/o F with PMH of asthma, CAD with stents, HTN, HLD, who presents to the ED with L sided chest pain. r/o mi neg pe r/o pending Plan; increase asa to 325 mg qd echo mibi st coverage for dr. Clark
[2017-07-28] MEDS: ALBUTEROL SO4 2.5/IPRATROPIUM 0.5 INH SOL 3 ML VIAL.NEB. NEB SCH ×4 (07:55→21:15)
[2017-07-28 08:03] LABS: CHLORIDE 103 mmol/L (98-107); POTASSIUM 4.1 mmol/L (3.5-5.1); SODIUM 138 mmol/L (136-145)
[2017-07-28 08:19] LABS: ALBUMIN 2.9 g/dl (3.4-5.0); ALK PHOS 171 U/L (45-117); ANION GAP 7 (8-16); BILIRUBIN,DIRECT < 0.2 mg/dL (0.0-0.2); BILIRUBIN,TOTAL 0.3 mg/dL (0.2-1.0); BLOOD UREA NITROGEN 19 mg/dL (7-18); CO2 28 mmol/L (21-32); CREATININE 0.9 mg/dL (0.55-1.02); GLUCOSE,RANDOM 177 mg/dL (74-106); MAGNESIUM 2.1 mg/dL (1.8-2.4); SGOT/AST 44 U/L (15-37); SGPT/ALT 68 U/L (12-78); TOT PROT 6.5 g/dl (6.4-8.2)
[2017-07-28 08:20] LABS: CHOLESTEROL 209 mg/dL (50-200); HDL CHOLESTEROL 74 mg/dL (40-60); TRIGLYCERIDES 55 mg/dL (35-160)
[2017-07-28 08:58] LABS: PLATELET ESTIMATE NORMAL
[2017-07-28] MEDS: predniSONE 20 MG TABLET (UD) PO SCH (09:01)
[2017-07-28] MEDS: amLODIPine BESYLATE 5 MG TABLET (FP) PO SCH (09:01)
[2017-07-28] MEDS: HYDROCHLOROTHIAZIDE 25 MG TABLET (FP) PO SCH (09:01)
[2017-07-28] MEDS: NEBIVOLOL 10 MG TABLET (FP) PO SCH (09:01)
[2017-07-28] MEDS: PANTOPRAZOLE 40 MG TABLET (FP) PO SCH ×2 (09:01→21:53)
[2017-07-28] MEDS: LISINOPRIL 20 MG TABLET (FP) PO SCH (09:01)
[2017-07-28] MEDS ORDERED: ASPIRIN 81 MG CHEWABLE TABLETS PO SCH (10:00)
[2017-07-28] MEDS ORDERED: PATIENT'S OWN MEDICATION (NON-FORMULARY) (Amlodipine Besylate/Benazepril [Lotrel 5-40 Mg C PO SCH (10:00)
--- NOTE | 2017-07-28 10:51 | PN ---
Progress Note (short form) - Note Progress Note: Subjective: No fever ro chills, no abd pain , no CP . pressure like cp resolved. just finished a course of prednisone and Abx as out pt Objective: Vital Signs: Last Vital Signs Temp Pulse Resp BP Pulse Ox 98 F 69 18 112/75 97 07/28/17 10:00 07/28/17 10:00 07/28/17 10:00 07/28/17 10:00 07/28/17 00:30 labs reviewed Physical Exam: NAd CV : RRR Lungs: scattered wheezing ext : no edema abd: soft, Nt, ND , NL BS , no hepatosplenomegaly Imaging: CTA prelim with no PC US pending Assessment/Plan: 62 y/o lady with h/o asthma, CAD, HTN, dyslipidemia who presented with L Sided chest pressure nad SOB . she was found to have acute asthma exacerbation 1- Acute asthma exa: much imporved . - cont prednisone - nebs - add advair. - need pulm f/u as she just finished a course of abx and steroids - no PNA , and was just on ABx . no need for ABx 2- CP , h/o CAD - cont ASa , and BB - for stress test tomorrow - LDL above goal . starte don lipitor . monitor liver function ( was on lipitor before but she stopped it ) 3- HTN: cont lisinopril, norvasc , HCTZ and BB . 4- transaminitisL unclear etiology no tenderness on exam, - US pending 5- DVT PX :CDS. declined heparin . ambulation possibel dc tomorrow if stress neg Visit type - Emergency Visit Emergency Visit: Yes ED Registration Date: 07/27/17 Care time: The patient presented to the Emergency Department on the above date and was hospitalized for further evaluation of their emergent condition. - New Patient This patient is new to me today: Yes Date on this admission: 07/28/17 - Critical Care Critical Care patient: No
[2017-07-28] MEDS: ASPIRIN 325 MG ENTERIC COATED TABLET (FP) PO SCH (14:31)
[2017-07-28] MEDS ORDERED: MONTELUKAST NA 10 MG TABLET PO SCH (22:00)
[2017-07-28] MEDS ORDERED: ATORVASTATIN CA 10 MG TABLET (FP) PO SCH (22:00)
[2017-07-28] MEDS: FLUTICASONE/SALMETEROL 100 MCG/50 MCG DISKUS IH SCH (23:13)
[2017-07-29 06:47] LABS: ALBUMIN 2.8 g/dl (3.4-5.0); ANION GAP 8 (8-16); BILIRUBIN,TOTAL 0.2 mg/dL (0.2-1.0); BLOOD UREA NITROGEN 18 mg/dL (7-18); CALCIUM 8.9 mg/dL (8.5-10.1); CHLORIDE 101 mmol/L (98-107); CO2 29 mmol/L (21-32); CREATININE 0.8 mg/dL (0.55-1.02); GLUCOSE,RANDOM 126 mg/dL (74-106); POTASSIUM 3.6 mmol/L (3.5-5.1); SGOT/AST 21 U/L (15-37); SGPT/ALT 48 U/L (12-78); SODIUM 138 mmol/L (136-145); TOT PROT 6.2 g/dl (6.4-8.2)
[2017-07-29 06:48] LABS: ALK PHOS 136 U/L (45-117)
[2017-07-29] MEDS: ALBUTEROL SO4 2.5/IPRATROPIUM 0.5 INH SOL 3 ML VIAL.NEB. NEB SCH ×3 (07:59→16:00)
--- NOTE | 2017-07-29 08:32 | PN ---
Progress Note, Physician Chief Complaint: denies CP or SOB CTA negative for PE - Current Medication List Current Medications: Active Medications Albuterol Sulfate (Ventolin 0.083% Nebulizer Soln -) 1 amp NEB Q4H PRN PRN Reason: SHORT OF BREATH/WHEEZING Last Admin: 07/28/17 01:33 Dose: 1 amp Albuterol/Ipratropium (Duoneb -) 1 amp NEB RQID [facility] Last Admin: 07/29/17 07:59 Dose: 1 amp Amlodipine Besylate (Norvasc -) 5 mg PO DAILY [facility] Last Admin: 07/28/17 09:01 Dose: 5 mg Aspirin (Ecotrin -) 325 mg PO DAILY [facility] Last Admin: 07/28/17 14:31 Dose: 325 mg Atorvastatin Calcium (Lipitor -) 10 mg PO HS [facility] Last Admin: 07/28/17 21:53 Dose: 10 mg Hydrochlorothiazide (Hctz -) 25 mg PO DAILY [facility] Last Admin: 07/28/17 09:01 Dose: 25 mg Lisinopril (Prinivil) 40 mg PO DAILY [facility] Last Admin: 07/28/17 09:01 Dose: 40 mg Montelukast Sodium (Singulair -) 10 mg PO HS [facility] Last Admin: 07/28/17 21:53 Dose: 10 mg Nebivolol (Bystolic -) 10 mg PO DAILY [facility] Last Admin: 07/28/17 09:01 Dose: 10 mg Pantoprazole Sodium (Protonix -) 40 mg PO BID [facility] Last Admin: 07/28/17 21:53 Dose: 40 mg Prednisone (Deltasone -) 40 mg PO DAILY [facility] Last Admin: 07/28/17 09:01 Dose: 40 mg Fluticasone/Salmeterol (Advair 100mcg/50mcg -) 1 puff IH BID [facility] Last Admin: 07/28/17 23:13 Dose: 1 puff - Objective Vital Signs: Vital Signs Temperature 98.0 F 07/29/17 06:00 Pulse Rate 61 07/29/17 06:00 Respiratory Rate 20 07/29/17 06:00 Blood Pressure 142/89 07/29/17 06:00 O2 Sat by Pulse Oximetry (%) 96 07/28/17 22:00 Constitutional: Yes: No Distress, Calm Cardiovascular: Yes: Regular Rate and Rhythm Respiratory: Yes: Rhonchi Gastrointestinal: Yes: Soft Edema: No Neurological: Yes: Alert, Oriented Labs: CBC, BMP 07/28/17 06:00 07/29/17 05:24 INR, PTT INR 1.08 (0.82-1.09) 07/27/17 11:24 Laboratory Tests 07/27/17 07/27/17 07/28/17 11:24 11:24 06:00 WBC 7.8 D Hgb 11.4 Plt Count 354 D-Dimer 741 H Sodium Potassium BUN Creatinine Troponin I < 0.02 Total LDL Cholesterol 07/28/17 07/29/17 06:00 05:24 WBC Hgb Plt Count D-Dimer Sodium 138 Potassium 3.6 BUN 18 Creatinine 0.8 Troponin I < 0.02 Total LDL Cholesterol 119 H - ....Imaging EKG: Image Reviewed (TELE with NSR and rare PVCs) Assessment/Plan 62 y/o F with PMH of asthma, CAD with stents, HTN, HLD, who presents to the ED with L sided chest pain. r/o mi neg CTA negative for PE. Plan: - Echo and exercise MIBI planned for today. -Further reccs pending above. -Further w/u elevated d-dimer as per PMD, non-specific finding.
[2017-07-29] MEDS: LISINOPRIL 20 MG TABLET (FP) PO SCH (12:50)
[2017-07-29] MEDS: NEBIVOLOL 10 MG TABLET (FP) PO SCH (12:50)
[2017-07-29] MEDS: PANTOPRAZOLE 40 MG TABLET (FP) PO SCH (12:50)
[2017-07-29] MEDS: HYDROCHLOROTHIAZIDE 25 MG TABLET (FP) PO SCH (12:51)
[2017-07-29] MEDS: predniSONE 20 MG TABLET (UD) PO SCH (12:51)
[2017-07-29] MEDS: ASPIRIN 325 MG ENTERIC COATED TABLET (FP) PO SCH (12:51)
[2017-07-29] MEDS: amLODIPine BESYLATE 5 MG TABLET (FP) PO SCH (12:51)
[2017-07-29] MEDS: FLUTICASONE/SALMETEROL 100 MCG/50 MCG DISKUS IH SCH (12:52)
--- NOTE | 2017-07-29 15:02 | PN ---
Teaching Attending Note Name of Resident: Kenji Mccord ATTENDING PHYSICIAN STATEMENT I saw and evaluated the patient. I reviewed the resident's note and discussed the case with the resident. I agree with the resident's findings and plan as documented. SUBJECTIVE: No fever or chills . No CP . has no SOB . OBJECTIVE: NAd CV : RRR Lungs: CTB ext : no edema Assessment/Plan: 62 y/o lady with h/o asthma, CAD, HTN, dyslipidemia who presented with L Sided chest pressure nad SOB . she was found to have acute asthma exacerbation 1- Acute asthma exa: much improved. - cont prednisone taper , decrease dose - nebs - advair. - need pulm f/u as she just finished a course of abx and steroids 2- CP , h/o CAD - cont ASA, and BB - LDL above goal . cont lipitor ( started here ) - follow stress test today 3- HTN: cont lisinopril, norvasc , HCTZ and BB . 4- transaminitisL unclear etiology . Improved Dc home today if stress is negative
[2017-07-29 15:03] VITALS: BP 127/73; PULSE 77; TEMP 97.9
== END 2017-07-29 20:29 | disposition home or self-care (01) ==
LOC: JER 10:17 → JERBED 19:34 → J4W 07-28 00:17
PROVIDERS: ADMIT Internal Medicine; ATTEND Internal Medicine
PROC: 3E0333Z Introduction of Anti-inflammatory into Peripheral Vein, Percutaneous Approach (ICD-10-PCS; principal; 2017-07-27)
PROC: 3E0F7GC Introduction of Other Therapeutic Substance into Respiratory Tract, Via Natural or Artificial Opening (ICD-10-PCS; 2017-07-27)
DX: J45.901 Unspecified asthma with (acute) exacerbation (principal); R07.89 Other chest pain; I10 Essential (primary) hypertension; I25.10 Atherosclerotic heart disease of native coronary artery without angina pectoris; E78.5 Hyperlipidemia, unspecified; R77.8 Other specified abnormalities of plasma proteins; Z98.84 Bariatric surgery status; Z95.5 Presence of coronary angioplasty implant and graft; Z79.82 Long term (current) use of aspirin
CPT/HCPCS: 36415; 71046-TC-FY; 71275-TC; 76705-TC; 78452-TC; 80053; 80061; 80076; 81003; 82550; 82962; 83690; 83721; 83735; 84100; 84484; 85025; 85379; 85610; 86480; 87086; 93005; 93010; 93017; 93306-TC; 94640; 99285-25; A9502; G0378; J7620

== ENCOUNTER 2019-01-01 11:59 | Emergency (ER) | payer BC ==
[2019-01-01 12:03] VITALS: BP 157/97; PULSE 80; TEMP 98; BMI 25.0
[2019-01-01] MEDS ORDERED: IBUPROFEN 600 MG TABLET (FP) PO ONE ×2 (12:55→13:11)
[2019-01-01] MEDS ORDERED: ACETAMINOPHEN 325 MG TABLET (FP) PO ONE (12:55)
--- NOTE | 2019-01-01 12:55 | PDOC ---
History of Present Illness - General Chief Complaint: Injury Stated Complaint: FALL Time Seen by Provider: 01/01/19 12:04 History Source: Patient Exam Limitations: No Limitations Past History - Travel Traveled outside of the country in the last 30 days: No Close contact w/someone who was outside of country & ill: No - Past Medical History Allergies/Adverse Reactions: Allergies Allergy/AdvReac Type Severity Reaction Status Date / Time No Known Allergies Allergy Verified 01/01/19 12:03 Home Medications: Ambulatory Orders Hydrochlorothiazide 25 mg PO DAILY 06/11/15 Nebivolol HCl [Bystolic] 10 mg PO DAILY 06/11/15 Aspirin [Cecilia Chewable Aspirin] 81 mg PO DAILY 06/25/16 Amlodipine Besylate/Benazepril [Lotrel 5-40 mg Capsule] 1 each PO DAILY Albuterol Sulfate Inhaler - [Ventolin HFA Inhaler -] 1 - 2 inh PO QID PRN #1 inhaler 07/12/17 Atorvastatin Ca [Lipitor] 10 mg PO HS #30 tablet 07/29/17 Montelukast Na [Singulair -] 10 mg PO HS #30 tab.chew 07/29/17 Pantoprazole Sodium [Protonix -] 40 mg PO BID #14 tablet.ec 07/29/17 Prednisone 10 mg PO DAILY #14 tablet 07/29/17 Salmeterol/Fluticasone [Advair 100Mcg/50Mcg -] 1 puff IH BID #1 inhaler Ibuprofen 600 mg PO Q6H #30 tablet 01/01/19 Asthma: Yes Cardiac Disorders: Yes (cardiac stents) COPD: No HTN: Yes Hypercholesterolemia: Yes - Surgical History Abdominal Surgery: Yes (Gastric bypass) Appendectomy: Yes Cardiac Surgery: Yes (Cardica Stents) - Immunization History Immunization Up to Date: No - Psycho Social/Smoking Cessation Hx Smoking Status: Yes Smoking History: Never smoked Have you smoked in the past 12 months: No Number of Cigarettes Smoked Daily: 4 If you are a former smoker, when did you quit?: 2 weeks 'Breaking Loose' booklet given: 06/25/16 Hx Alcohol Use: No Drug/Substance Use Hx: No Substance Use Type: None Hx Substance Use Treatment: No *Physical Exam - Vital Signs Last Vital Signs Temp Pulse Resp BP Pulse Ox 98 F 80 18 157/97 99 01/01/19 12:00 01/01/19 12:00 01/01/19 12:00 01/01/19 12:00 01/01/19 12:00 Discharge - Discharge Information Problems reviewed: Yes Clinical Impression/Diagnosis: Foot fracture, right Qualifiers: Encounter type: initial encounter Fracture type: closed Qualified Code(s): S92.901A - Unspecified fracture of right foot, initial encounter for closed fracture Condition: Stable Disposition: HOME - Admission No - Follow up/Referral Referrals: Lennie Gruber MD [Primary Care Provider] - Dain Lugo MD [Staff Physician] - Shnae Redd MD [Staff Physician] - - Patient Discharge Instructions Patient Printed Discharge Instructions: DI for Foot Fracture Additional Instructions: You were evaluated for injuries after your fall today. Your tetanus shot was updated today. The x-ray of your foot shows a broken bone along the fifth toe. Please wear the hard soled shoe while walking. Please follow-up with orthopedics in 24 to 48 hours for further evaluation and management of your symptoms. It is very important that she follow-up with orthopedics as this will not heal without further treatment. You may take ibuprofen 600 mg every 6 hours for pain If you have breakthrough pain, you may take a Percocet every 6 hours as needed for pain. Do not drink or drive after taking medication as it may make you drowsy. Return to the ER for worsening pain, numbness and tingling to the extremity or if you have any changes in your symptoms. - Post Discharge Activity Work/Back to School Note: Back to Work
[2019-01-01] MEDS ORDERED: ACETAMINOPHEN 325 MG TABLET (FP) ONE (13:11)
[2019-01-01] MEDS ORDERED: DIPHTH,PERTUSS(ACELL),TET 0.5 ML DISP.SYRIN IM ONE ×2 (14:16→14:25)
== END 2019-01-01 14:35 | disposition home or self-care (01) ==
LOC: JERFT 11:59
PROC: 3E0234Z Introduction of Serum, Toxoid and Vaccine into Muscle, Percutaneous Approach (ICD-10-PCS; principal; 2019-01-01)
DX: S62.316A Displaced fracture of base of fifth metacarpal bone, right hand, initial encounter for closed fracture (principal); W19.XXXA Unspecified fall, initial encounter; Y93.89 Activity, other specified; Y99.8 Other external cause status; Y92.89 Other specified places as the place of occurrence of the external cause; I25.10 Atherosclerotic heart disease of native coronary artery without angina pectoris; I10 Essential (primary) hypertension; Z95.5 Presence of coronary angioplasty implant and graft; E78.00 Pure hypercholesterolemia, unspecified; J45.909 Unspecified asthma, uncomplicated; Z98.84 Bariatric surgery status
CPT/HCPCS: 73110-TC-RT-FY; 73130-TC-RT-FY; 73562-TC-LT-FY; 73610-TC-RT-FY; 73630-TC-RT-FY; 90715; 99282-25

== ENCOUNTER 2019-09-17 17:35 | Emergency (ER) | payer BC ==
[2019-09-17 17:44] VITALS: TEMP 98.4; BMI 26.6
[2019-09-17] MEDS ORDERED: MAG HYDROX/AL HYDROX/SIMETH -MYLANTA- ORAL SUSPENSION PO ONE (18:44)
[2019-09-17] MEDS ORDERED: FAMOTIDINE 20 MG/50 ML IVPB 20 MG/50 ML MG IVPB ONE ×2 (18:44→18:55)
[2019-09-17] MEDS ORDERED: ACETAMINOPHEN 1000 MG/100 ML VIAL (NON FORMULARY) IVPB ONE (18:46)
[2019-09-17 18:48] LABS: BASO % 0.7 % (0-2.0); EOS % 4.6 % (0-4.5); HEMATOCRIT 36.2 % (32.4-45.2); HEMOGLOBIN 12.1 GM/dL (10.7-15.3); LYMPH % 30.4 % (8-40); MCH 29.8 pg (25.7-33.7); MCHC 33.4 g/dl (32.0-36.0); MEAN CELL VOLUME 89.4 fl (80-96); MEAN PLT VOLUME 6.8 fl (7.5-11.1); MONO % 8.1 % (3.8-10.2); NEUT % 56.2 % (42.8-82.8); PLATELET COUNT 355 K/MM3 (134-434); RBC 4.05 M/mm3 (3.60-5.2); RDW 17.9 % (11.6-15.6); WHITE BLOOD COUNT 6.2 K/mm3 (4.0-10.0)
[2019-09-17] MEDS ORDERED: LACTATED RINGERS SOLUTION 1000 ML INFUS.BAG IV ONE (18:49)
[2019-09-17] MEDS ORDERED: ASPIRIN 81 MG CHEWABLE TABLETS PO ONE (18:52)
[2019-09-17] MEDS ORDERED: MAG HYDROX/AL HYDROX/SIMETH 30 ML UNIT-DOSE CUP ONE (18:55)
[2019-09-17] MEDS ORDERED: ACETAMINOPHEN INJECTION 100 ML IVPB ONE (18:55)
[2019-09-17] MEDS ORDERED: ASPIRIN 81 MG CHEWABLE TABLETS ONE (18:55)
[2019-09-17 18:58] LABS: INR 0.97 (0.83-1.09); PROTHROMBIN TIME (PATIENT) 11.5 SEC (9.7-13.0)
--- NOTE | 2019-09-17 18:58 | PDOC ---
History of Present Illness - General Chief Complaint: Chest Pain Stated Complaint: CHEST PAIN/ SOB Time Seen by Provider: 09/17/19 18:02 History Source: Patient Exam Limitations: No Limitations - History of Present Illness Initial Comments: Madelin Saul is a 64 Y F with a PMH of HTN, HLD, CAD(s/p Stent), Asthma, presents to ER from her PCP(), for epigastric pain radiating to the back. Patient reports that she went to her PCP today for a physical and her PCP sent her to ER for abnormal EKG. She has had episodic epigastric pain for about 4 months, but since two weeks, it has increased in frequency. Pain is burning/gaseous in quality, radiating to to flank and back. She is a current, everyday smoker, 5 cig/d for >40 years. She also reports that she has increased stress in her home life. She did not take her home meds today. 09/17/19 18:53 09/17/19 19:17 Past History - Medical History Allergies/Adverse Reactions: Allergies Allergy/AdvReac Type Severity Reaction Status Date / Time No Known Allergies Allergy Verified 01/01/19 12:03 Home Medications: Ambulatory Orders Hydrochlorothiazide 25 mg PO DAILY 06/11/15 Nebivolol HCl [Bystolic] 10 mg PO DAILY 06/11/15 Aspirin [Cecilia Chewable Aspirin] 81 mg PO DAILY 06/25/16 Amlodipine Besylate/Benazepril [Lotrel 5-40 mg Capsule] 1 each PO DAILY 07/11/17 Albuterol Sulfate Inhaler - [Ventolin HFA Inhaler -] 1 - 2 inh PO QID PRN #1 inhaler 07/12/17 Atorvastatin Ca [Lipitor] 10 mg PO HS #30 tablet 07/29/17 Montelukast Na [Singulair -] 10 mg PO HS #30 tab.chew 07/29/17 Pantoprazole Sodium [Protonix -] 40 mg PO BID #14 tablet.ec 07/29/17 Salmeterol/Fluticasone [Advair 100Mcg/50Mcg -] 1 puff IH BID #1 inhaler 07/29/17 Ibuprofen 600 mg PO Q6H #30 tablet 01/01/19 Asthma: Yes Cardiac Disorders: Yes (cardiac stents) COPD: No HTN: Yes Hypercholesterolemia: Yes - Surgical History Abdominal Surgery: Yes (Gastric bypass) Appendectomy: Yes Cardiac Surgery: Yes (Cardica Stents) - Reproductive History Is Patient Now?: No - Immunization History Immunization Up to Date: No - Psycho-Social/Smoking History Smoking Status: Yes Smoking History: Current every day smoker Have you smoked in the past 12 months: Yes Number of Cigarettes Smoked Daily: 4 If you are a former smoker, when did you quit?: 2 weeks Information on smoking cessation initiated: No 'Breaking Loose' booklet given: 06/25/16 - Substance Abuse Hx (Audit-C & DAST Scrn) How often the patient has a drink containing alcohol: Monthly or less Number of drinks the patient has on a typical day: 1 or 2 How often the patient has six or more drinks on one occasion: Never Score: In Men: 4 or > Positive; In Women: 3 or > Positive: 1 Screen Result (Pos requires Nsg. Audit-10AR): Negative In the last yr the pt used illegal drug/Rx for NonMed reason: No Score: Yes response is considered Positive: 0 Screen Result (Positive result requires Nsg. DAST-10): Negative Review of Systems - Review of Systems Able to Perform ROS?: Yes Is the patient limited Kinyarwanda proficient: No Constitutional: No: Chills, Diaphoresis, Fever, Night Sweats, Weakness HEENTM: No: Blurred Vision, Nose Congestion, Throat Pain, Throat Swelling, Difficulty Swallowing Respiratory: No: Cough, Shortness of Breath, SOB with Exertion, SOB at Rest Cardiac (ROS): No: Chest Pain, Edema, Lightheadedness, Palpitations, Chest Tightness ABD/GI: Yes: Other (Epigastric pain radiating to left flank and back). No: Constipated, Diarrhea, Difficulty Swallowing, Poor Appetite, Poor Fluid Intake, Vomiting, Abdominal cramping Musculoskeletal: Yes: Back Pain. No: Joint Pain, Joint Stiffness Integumentary: No: Change in Color Neurological: No: Headache, Numbness, Paresthesia, Tingling Psychiatric: No: Anxiety *Physical Exam - Vital Signs Last Vital Signs Temp Pulse Resp BP Pulse Ox 98.4 F 68 17 144/111 H 98 09/17/19 17:40 09/17/19 18:00 09/17/19 17:40 09/17/19 17:40 09/17/19 18:00 - Physical Exam General Appearance: Yes: Appropriately Dressed, Thin. No: Apparent Distress HEENT: positive: EOMI, CONRADO. negative: Nasal Congestion, Rhinorrhea Neck: positive: Supple. negative: Tender, Carotid bruit Respiratory/Chest: positive: Lungs Clear, Normal Breath Sounds, Wheezing (b/l expiratory wheez). negative: Chest Tender, Respiratory Distress, Crackles, Rales, Rhonchi Cardiovascular: positive: Regular Rhythm, Regular Rate, S1, S2. negative: Edema, JVD, Murmur Vascular Pulses: Carotid (R): 2+, Carotid (L): 2+, Dorsalis-Pedis (R): 2+, Doralis-Pedis (L): 2+ Gastrointestinal/Abdominal: positive: Normal Bowel Sounds, Tender (epigastric tenderness to palpation), Flat, Soft, Guarding, Rebound Musculoskeletal: negative: CVA Tenderness Extremity: negative: Pedal Edema, Calf Tenderness Integumentary: positive: Normal Color, Warm, Moist Neurologic: positive: home health physical therapist II-XII NML intact, Fully Oriented, Alert ED Treatment Course - LABORATORY CBC & Chemistry Diagram: 09/17/19 17:56 09/17/19 17:56 Medical Decision Making - Medical Decision Making 64 Y F with a PMH of HTN, HLD, CAD(s/p Stent), Asthma, presents to ER from her PCP(), for epigastric pain radiating to the back. #Epigastric pain -2/2 to GERD/gastritis vs PUD vs r/o ACS (risk factors: HTN, HLD, CAD) - repeat EKG: - EKG from PCP: Sinus rhythm, septal infarct - Cardiac enzymes: trop < 0.02 , BNP 173.1 - Cardiac monitoring - CXR: - CBC, CMP, Lipase, BNP - LR, ASA 324, Mylanta 30 ml, Tylenol 1000mg, Pepcid 20mg 09/17/19 19:35 Discharge - Discharge Information Problems reviewed: Yes Clinical Impression/Diagnosis: Wheezing Chest pain Qualifiers: Chest pain type: other chest pain Qualified Code(s): R07.89 - Other chest pain Acid reflux Qualifiers: Esophagitis presence: esophagitis presence not specified Qualified Code(s): K21.9 - Gastro-esophageal reflux disease without esophagitis Condition: Improved Disposition: AGAINST MEDICAL ADVICE - Follow up/Referral Referrals: Lennie Gruber MD [Primary Care Provider] - - Patient Discharge Instructions Patient Printed Discharge Instructions: DI for Atypical Chest Pain Additional Instructions: You were seen at [facility] for an episode of epigastric chest pain. You are leaving against medical advice and refusing evaluation of your epigastric pain, tele monitoring. It is essential that you follow up with your primary care physician() within the next 1-2 days. Please return to the Emergency Department if you change your mind and wish to continue evaluation of your symptoms or if you experience any of the following: - passing out - chest pain - Palpitations - shortness of breath and/or difficulty breathing - seizure - lightheadedness, and/or dizziness - inability to eat or drink you are choosing to leave against medical advice (AMA) you have capacity to make medical decisions. you are of sound mind and competent to refuse medical care. you demonstrate a normal mental capacity to make decisions regarding your healthcare. You are clinically sober and does not appear to be under the influence of any illicit drugs at this time. You are at risk for ACS and you have been advised of the risks of leaving AMA which include, but are not limited to cardiac arrest, arrhythmia, respiratory failure, delay in diagnosis and management, loss of current lifestyle, loss of functional status, multiorgan failure, coma, severe disability and . you have been advised that should you change your mind you are welcome to return to this hospital, or any other, at any time. you understand that in no way does an AMA discharge mean that I do not want them to have the best medical care available. To this end, I have provided appropriate prescriptions, referrals, and discharge instructions. you signed AMA paperwork. The above discussion was witnessed by another member of staff, RN - Post Discharge Activity
[2019-09-17 19:01] LABS: ACTIVATED PTT 34.2 SECONDS (25.2-36.5)
[2019-09-17 19:18] LABS: ALBUMIN 3.8 g/dl (3.4-5.0); ALK PHOS 95 U/L (45-117); ANION GAP 7 MMOL/L (8-16); BILIRUBIN,TOTAL 0.4 mg/dL (0.2-1); BLOOD UREA NITROGEN 22.2 mg/dL (7-18); CALCIUM 9.5 mg/dL (8.5-10.1); CHLORIDE 108 mmol/L (98-107); CO2 27 mmol/L (21-32); GLUCOSE,RANDOM 80 mg/dL (74-106); LIPASE 135 U/L (73-393); MAGNESIUM 2.2 mg/dL (1.8-2.4); N-TERMINAL BNP 173.1 pg/ml (5-125); POTASSIUM 3.9 mmol/L (3.5-5.1); SGOT/AST 18 U/L (15-37); SGPT/ALT 17 U/L (13-61); SODIUM 143 mmol/L (136-145); TOT PROT 7.1 g/dl (6.4-8.2)
[2019-09-17] MEDS ORDERED: HYDROCHLOROTHIAZIDE 25 MG TABLET (FP) PO ONE (19:30)
[2019-09-17] MEDS ORDERED: amLODIPine BESYLATE 5 MG TABLET (FP) PO ONE (19:30)
[2019-09-17] MEDS ORDERED: NEBIVOLOL 10 MG TABLET (FP) PO ONE (19:31)
[2019-09-17] MEDS ORDERED: HYDROCHLOROTHIAZIDE 25 MG TABLET (FP) ONE (19:44)
[2019-09-17] MEDS ORDERED: amLODIPine BESYLATE 5 MG TABLET (FP) ONE (19:44)
[2019-09-17] MEDS ORDERED: ALBUTEROL SO4 HFA INHALER IH ONE ×2 (19:55→20:07)
--- NOTE | 2019-09-17 20:10 | PDOC ---
Documentation entered by Janee Angel SCRIBE, acting as scribe for Caty Bragg DO. Caty Bragg DO: This documentation has been prepared by the Stanley robison Brenda, SCRIBE, under my direction and personally reviewed by me in its entirety. I confirm that the documentation accurately reflects all work, treatment, procedures, and medical decision making performed by me. Attending Attestation - Resident Resident Name: Andrews Do - ED Attending Attestation I have performed the following: I have examined & evaluated the patient, The case was reviewed & discussed with the resident, I agree w/resident's findings & plan, Exceptions are as noted - HPI HPI: 09/17/19 19:48 The patient is a 64 year old female with a significant PMH of HTN, HLD, CAD(s/p Stent), Asthma who presents to the emergency department sent by PCP for evaluation fo abnormal ECG. Patient notes that she has been having a burning sensation chest pain on her upper epigatsric area, she reports she believes it to be associated with her hernia. She also notes that with her chest pain she has been getting short of breath. She reports that when going for her physical at PCP's office, her PCP noticed an abnormal ECG and some wheezing, prompting her to proceed to the ED. The patient denies headache and dizziness. Denies fever, chills, nausea, vomiting, diarrhea and constipation. Denies dysuria, frequency, urgency and hematuria. Allergies: NKA Social history: Once in a while tobacco use. PCP: Lennie Gruber [employer] Teacher: [employer] - Physicial Exam PE: 09/17/19 19:47 GENERAL: Awake, alert, and fully oriented, in no acute distress HEAD: No signs of trauma EYES: PERRLA, EOMI, sclera anicteric, conjunctiva clear ENT: Auricles normal inspection, hearing grossly normal, nares patent, oropharynx clear without exudates. Moist mucosa NECK: Normal ROM, supple, no lymphadenopathy, JVD, or masses LUNGS: (+) Wheezing bilaterally. Breath sounds equal, clear to auscultation bilaterally. No crackles HEART: Regular rate and rhythm, normal S1 and S2, no murmurs, rubs or gallops ABDOMEN: Soft, nontender, normoactive bowel sounds. No guarding, no rebound. No masses EXTREMITIES: Normal range of motion, no edema. No clubbing or cyanosis. No cords, erythema, or tenderness NEUROLOGICAL: Cranial nerves II through XII grossly intact. Normal speech, normal gait SKIN: Warm, Dry, normal turgor, no rashes lesions noted. - Medical Decision Making 09/17/19 19:57 a/p: 64yo female with epigastric pain, burning sensation in her chest and new onset wheezing -pt does smoke tobacco products -also at risk for acs and gerd -will send labs -ekg, cxr, trop x 2 -will give inhaler, gi meds -will monitor and reassess -asa -pt will need tele obs 09/17/19 21:41 trop neg labs reviewed will repeat trop 09/17/19 22:54 repeat trop neg 09/17/19 23:02 pt states she does not want to stay for obs and further eval states she will follow up with PMD and cards tomorrow pt will sign out ama Heart Score/ECG Review - ECG Intrepretation Comment:: 09/17/19 20:18 sinus at 63, nl axis, nl interval, no acute st/t wave findings Discharge - Discharge Information Problems reviewed: Yes Clinical Impression/Diagnosis: Wheezing, Chest pain, Acid reflux Condition: Unchanged/Unknown Disposition: AGAINST MEDICAL ADVICE - Follow up/Referral Referrals: Lennie Gruber MD [Primary Care Provider] - - Patient Discharge Instructions - Post Discharge Activity
[2019-09-17 23:23] VITALS: BP 174/93; PULSE 62
--- NOTE | 2019-09-18 12:54 | EKG ---
Test Reason : Blood Pressure : / mmHG Vent. Rate : 063 BPM Atrial Rate : 063 BPM P-R Int : 148 ms QRS Dur : 092 ms QT Int : 418 ms P-R-T Axes : 064 026 034 degrees QTc Int : 427 ms NORMAL SINUS RHYTHM POSSIBLE LEFT ATRIAL ENLARGEMENT ANTEROSEPTAL INFARCT , AGE UNDETERMINED ABNORMAL ECG WHEN COMPARED WITH ECG OF 27-JUL-2017 11:46, QUESTIONABLE CHANGE IN QRS AXIS ST NO LONGER ELEVATED IN INFERIOR LEADS NONSPECIFIC T WAVE ABNORMALITY NO LONGER EVIDENT IN LATERAL LEADS Confirmed by ALICE SCRUGGS MD ([id number]) on 09/18/2019 12:54:01 PM Referred By: Confirmed By:ALICE SCRUGGS MD
== END 2019-09-17 23:36 | disposition left against medical advice (07) ==
LOC: JER 17:35
PROC: 3E0333Z Introduction of Anti-inflammatory into Peripheral Vein, Percutaneous Approach (ICD-10-PCS; principal; 2019-09-17)
PROC: 3E033GC Introduction of Other Therapeutic Substance into Peripheral Vein, Percutaneous Approach (ICD-10-PCS; 2019-09-17)
DX: R06.2 Wheezing (principal); R07.89 Other chest pain; K21.9 Gastro-esophageal reflux disease without esophagitis
CPT/HCPCS: 36415; 71045-TC-FY; 80053; 82550; 83690; 83735; 83880; 84484; 85025; 85610; 85730; 93005; 93010; 99285-25; J0131

== ENCOUNTER 2021-07-07 10:28 | Emergency (ER) | payer BC ==
[2021-07-07 10:43] VITALS: BMI 25.0
[2021-07-07] MEDS ORDERED: FAMOTIDINE 20 MG/50 ML IVPB 20 MG/50 ML MG IVPB ONE ×2 (10:55→11:33)
[2021-07-07] MEDS ORDERED: ASPIRIN 81 MG CHEWABLE TABLETS PO ONE (10:55)
[2021-07-07] MEDS ORDERED: MAG HYDROX/AL HYDROX/SIMETH 30 ML UNIT-DOSE CUP PO ONE (10:55)
[2021-07-07] MEDS ORDERED: SUCRALFATE 1 GM TABLET (FP) PO ONE (10:55)
[2021-07-07] MEDS ORDERED: ASPIRIN 81 MG CHEWABLE TABLETS ONE (11:32)
[2021-07-07] MEDS ORDERED: SUCRALFATE 1 GM TABLET (FP) ONE (11:32)
[2021-07-07] MEDS ORDERED: MAG HYDROX/AL HYDROX/SIMETH 30 ML UNIT-DOSE CUP ONE (11:33)
[2021-07-07 12:26] LABS: BASO % 0.5 % (0-2.0); EOS % 3.9 % (0-4.5); HEMATOCRIT 37.8 % (32.4-45.2); HEMOGLOBIN 12.4 GM/dL (10.7-15.3); LYMPH % 15.6 % (8-40); MCH 29.4 pg (25.7-33.7); MCHC 32.8 g/dl (32.0-36.0); MEAN CELL VOLUME 89.9 fl (80-96); MEAN PLT VOLUME 6.7 fl (7.5-11.1); MONO % 7.5 % (3.8-10.2); NEUT % 72.5 % (42.8-82.8); PLATELET COUNT 384 10^3/uL (134-434); RDW 16.9 % (11.6-15.6); WHITE BLOOD COUNT 6.4 K/mm3 (4.0-10.0)
[2021-07-07 12:41] LABS: INR 0.98 (0.83-1.09); PROTHROMBIN TIME (PATIENT) 11.3 SEC (9.7-13.0)
[2021-07-07 12:42] LABS: ACTIVATED PTT 32.7 SECONDS (25.2-36.5)
[2021-07-07 12:52] LABS: ALBUMIN 3.6 g/dl (3.4-5.0); BLOOD UREA NITROGEN 23.4 mg/dL (7-18); CALCIUM 9.4 mg/dL (8.5-10.1); MAGNESIUM 2.3 mg/dL (1.8-2.4)
[2021-07-07 12:57] LABS: BILIRUBIN,TOTAL 0.5 mg/dL (0.2-1); TOT PROT 7.1 g/dl (6.4-8.2)
[2021-07-07] MEDS ORDERED: ACETAMINOPHEN 1000 MG/100 ML BAG IVPB ONE (13:01)
[2021-07-07] MEDS ORDERED: ACETAMINOPHEN INJECTION 100 ML IVPB ONE (13:03)
[2021-07-07 16:07] VITALS: BP 128/74; PULSE 78; TEMP 98.4
== END 2021-07-07 16:08 | disposition home or self-care (01) ==
LOC: JER 10:28
PROC: 3E033GC Introduction of Other Therapeutic Substance into Peripheral Vein, Percutaneous Approach (ICD-10-PCS; principal; 2021-07-07)
DX: R07.9 Chest pain, unspecified (principal); K21.9 Gastro-esophageal reflux disease without esophagitis
CPT/HCPCS: 36415; 71045-TC-FY; 80053; 83735; 84484; 85025; 85610; 85730; 93005; 93010; 99285-25

== ENCOUNTER 2022-02-20 12:08 | Emergency (ER) | payer BC ==
[2022-02-20 12:21] VITALS: BP 129/73; PULSE 68; RESP 18; TEMP 98; BMI 26.6
[2022-02-20] MEDS ORDERED: LIDOCAINE 5% TOPICAL PATCH TP ONE (13:51)
[2022-02-20] MEDS ORDERED: LIDOCAINE 5% TOPICAL PATCH ONE (14:34)
[2022-02-20 14:55] LABS: BASO % 0.4 % (0-2.0); EOS % 3.9 % (0-4.5); HEMATOCRIT 39.2 % (32.4-45.2); HEMOGLOBIN 12.6 GM/dL (10.7-15.3); LYMPH % 28.7 % (8-40); MCH 28.9 pg (25.7-33.7); MCHC 32.2 g/dl (32.0-36.0); MEAN CELL VOLUME 89.8 fl (80-96); MEAN PLT VOLUME 6.2 fl (7.5-11.1); MONO % 11.7 % (3.8-10.2); NEUT % 55.3 % (42.8-82.8); PLATELET COUNT 379 10^3/uL (134-434); RBC 4.36 M/mm3 (3.60-5.2); WHITE BLOOD COUNT 5.3 K/mm3 (4.0-10.0)
[2022-02-20 14:56] LABS: INR 1.08 (0.83-1.09); PROTHROMBIN TIME (PATIENT) 12.4 SEC (9.7-13.0)
[2022-02-20 14:59] LABS: ACTIVATED PTT 35.1 SECONDS (25.2-36.5)
[2022-02-20 15:14] LABS: ALBUMIN 3.5 g/dl (3.4-5.0); CALCIUM 9.6 mg/dL (8.5-10.1)
[2022-02-20 15:15] LABS: BLOOD UREA NITROGEN 29.4 mg/dL (7-18)
[2022-02-20 15:18] LABS: CREATININE 1.2 mg/dL (0.55-1.3)
[2022-02-20 15:19] LABS: BILIRUBIN,TOTAL 0.2 mg/dL (0.2-1); TOT PROT 7.2 g/dl (6.4-8.2)
[2022-02-20 16:58] LABS: PH,URINE 5.5 (5.0-8.0); URINE APPEARANCE CLEAR; URINE BILIRUBIN NEGATIVE (NEGATIVE); URINE COLOR YELLOW; URINE GLUCOSE (UA) NEGATIVE (NEGATIVE); URINE KETONE TRACE (NEGATIVE); URINE LEUK ESTERASE NEGATIVE (NEGATIVE); URINE NITRITE NEGATIVE (NEGATIVE); URINE PROTEIN TRACE (NEGATIVE)
[2022-02-20] MEDS ORDERED: LIDOCAINE PATCH REMOVAL MC SCH (22:00)
== END 2022-02-20 21:23 | disposition left against medical advice (07) ==
LOC: JER 12:08
DX: K57.92 Diverticulitis of intestine, part unspecified, without perforation or abscess without bleeding (principal)
CPT/HCPCS: 36415; 71275-TC; 74174-TC; 80053; 81003; 83690; 84484; 85025; 85610; 85730; 87086; 93005; 93010; 99285-25; Q9967

== ENCOUNTER 2022-09-12 04:10 | Day surgery (SDC) | payer OTHER, BC ==
[2022-09-07 09:51] VITALS: BMI 27.4
[2022-09-12] MEDS ORDERED: BUPIVACAINE HCL/PF 0.5% (5MG/ML) 10 ML VIAL ONE (11:36)
[2022-09-12] MEDS ORDERED: methylPREDNISolone ACET (DEPO) 80 MG/1 ML VIAL ONE (11:36)
[2022-09-12] MEDS ORDERED: LIDOCAINE HCL 1%, 10 MG/ML (50 mL VIAL) INF ONE ×2 (11:54→12:24)
[2022-09-12] MEDS ORDERED: methylPREDNISolone ACET (DEPO) 80 MG/1 ML VIAL IJ ONE ×2 (11:54→12:26)
[2022-09-12] MEDS ORDERED: BUPIVACAINE HCL/PF 0.5% (5 MG/ML) 30 ML VIAL IJ ONE ×2 (11:54→12:26)
[2022-09-12] MEDS ORDERED: MIDAZOLAM HCL 2 MG/2 ML SINGLE DOSE VIAL ONE ×2 (11:58→12:23)
[2022-09-12 13:39] VITALS: RESP 16; TEMP 97.3
[2022-09-12 13:42] VITALS: BP 128/75; PULSE 58
== END 2022-09-12 13:50 | disposition home or self-care (01) ==
LOC: JASU-SURG 04:10
PROVIDERS: ATTEND Neurological Surgery
PROC: 3E0R3BZ Introduction of Anesthetic Agent into Spinal Canal, Percutaneous Approach (ICD-10-PCS; 2022-09-12)
PROC: 3E0R33Z Introduction of Anti-inflammatory into Spinal Canal, Percutaneous Approach (ICD-10-PCS; principal; 2022-09-12 12:00)
DX: M51.16 Intervertebral disc disorders with radiculopathy, lumbar region (principal); M48.061 Spinal stenosis, lumbar region without neurogenic claudication
CPT/HCPCS: 76000-TC-FY

== ENCOUNTER 2023-01-18 07:06 | Emergency (ER) | payer OTHER, BC ==
[2023-01-18 07:31] VITALS: BP 135/83; PULSE 66; RESP 18; TEMP 97.8; BMI 27.1
[2023-01-18 08:52] LABS: BASO % 0.6 % (0-2.0); EOS % 3.1 % (0-4.5); HEMATOCRIT 37.4 % (32.4-45.2); HEMOGLOBIN 12.5 GM/dL (10.7-15.3); LYMPH % 19.7 % (8-40); MCH 30.5 pg (25.7-33.7); MCHC 33.4 g/dl (32.0-36.0); MEAN CELL VOLUME 91.2 fl (80-96); MEAN PLT VOLUME 6.4 fl (7.5-11.1); MONO % 11.1 % (3.8-10.2); NEUT % 65.5 % (42.8-82.8); PLATELET COUNT 393 10^3/uL (134-434); RDW 16.3 % (11.6-15.6); WHITE BLOOD COUNT 7.2 K/mm3 (4.0-10.0)
[2023-01-18 09:14] LABS: POTASSIUM 3.6 mmol/L (3.5-5.1)
[2023-01-18 09:16] LABS: CALCIUM 9.4 mg/dL (8.5-10.1)
[2023-01-18 09:17] LABS: ALBUMIN 3.8 g/dl (3.4-5.0); BLOOD UREA NITROGEN 21.5 mg/dL (7-18)
[2023-01-18 09:20] LABS: CREATININE 1.1 mg/dL (0.55-1.3)
[2023-01-18 09:21] LABS: TOT PROT 7.2 g/dl (6.4-8.2)
[2023-01-18 09:22] LABS: BILIRUBIN,TOTAL 0.6 mg/dL (0.2-1)
== END 2023-01-18 10:42 | disposition home or self-care (01) ==
LOC: JER 07:06
DX: R10.13 Epigastric pain (principal)
CPT/HCPCS: 36415; 71045-TC-FY; 76705-TC; 80053; 83690; 84484; 85025; 93005; 93010; 99285-25